=== PATIENT | male | born 1995 | race Caucasian/White ===

== ENCOUNTER 2017-07-06 23:30 | Emergency (ER) | payer OTHER ==
[2017-07-07 00:01] LABS: PLATELET COUNT 223 10^3/uL (150-400)
--- NOTE | 2017-07-07 00:08 | EDPHY ---
H & P Time Seen by Provider: 07/07/17 00:15 HPI/ROS: Chief complaint: SI/HI, on mental health hold History of present illness: This is a 22-year-old male who reports a history of bipolar, currently on multiple medications, who states he is having thoughts of hurting himself and other people. No specific plan or person targeted. He went to [facility] this evening to get medications at which time he states he felt unsafe. He felt he needed to come to the hospital to be safe. On my evaluation he feels like he is slightly improved. He denies illness or injury. Police have placed him on a mental health hold. Review of systems: A 10 point review of systems was obtained and other than described above was negative (Nilson Varma) - Physical Exam Exam: General Appearance: Alert, nontoxic. Eyes: Pupils equal and round no pallor or injection. ENT, Mouth: Mucous membranes moist. Respiratory: There are no retractions, lungs are clear to auscultation. Cardiovascular: Regular rate and rhythm. Gastrointestinal: Abdomen is soft and non tender, no masses, bowel sounds normal. Neurological: Alert. Strength and sensation intact and symmetrical. Skin: Warm and dry, no rashes. Musculoskeletal: Neck is supple non tender. Extremities are symmetrical, full range of motion. Psychiatric: Appears mildly agitated (Nilson Varma) Constitutional: Initial Vital Signs Temperature (C) 37.3 C 07/06/17 23:59 Heart Rate 96 07/06/17 23:59 Respiratory Rate 16 07/06/17 23:59 Blood Pressure 162/106 H 07/06/17 23:59 O2 Sat (%) 98 07/06/17 23:59 O2 Delivery Mode Room Air Allergies/Adverse Reactions: No Known Allergies Allergy (Unverified 07/07/17 00:13) Home Medications: Medication Instructions Recorded Acetaminophen 07/07/17 Benadryl 07/07/17 Cogentin 07/07/17 Depakote 07/07/17 INVEGA 07/07/17 LORazepam 07/07/17 Goldston Carbonate ER 07/07/17 Propranolol HCl 07/07/17 Seroquel 07/07/17 Medical Decision Making ED Course/Re-evaluation: Patient seen under the supervision of my secondary supervising physician Dr. Tana Haines. Patient presents stating SI and HI without specific plan or target. He is on a mental health hold. Medical evaluation is begun with blood studies. This is pending at time of dictation. Care of patient is turned over to Dr. Haines at end of shift. (Nilson Varma) Differential Diagnosis: Included but not limited to anxiety, depression, bipolar, schizophrenia, substance abuse (Nilson Vrama) Other Provider: I assumed care of the patient at 7 o'clock in the morning pending psychiatric disposition. Update at 1:00 p.m.: The patient has been accepted at [facility] for inpatient psychiatric hospitalization by Jero Cooper. [facility] (Kingston Menjviar) - Data Points Laboratory Results: Laboratory Results 07/06/17 23:45 07/06/17 23:45 Medications Given: Discontinued Medications Benztropine Mesylate (Cogentin) 2 mg PO EDNOW ONE Stop: 07/07/17 00:36 Last Admin: 07/07/17 01:19 Dose: 2 mg Divalproex Sodium (Depakote Er) 1,000 mg PO EDNOW ONE Stop: 07/07/17 00:46 Last Admin: 07/07/17 01:20 Dose: 1,000 mg Divalproex Sodium (Depakote Er) 250 mg PO EDNOW ONE Stop: 07/07/17 01:01 Last Admin: 07/07/17 01:20 Dose: 250 mg [place] Carbonate (Lithobid) 1,200 mg PO BID KEISHA Stop: 01/03/18 00:29 Last Admin: 07/07/17 07:14 Dose: Not Given [place] Carbonate (Lithobid) 1,200 mg PO EDNOW ONE Stop: 07/07/17 01:01 Last Admin: 07/07/17 01:20 Dose: 1,200 mg Paliperidone (Invega) 9 mg PO EDNOW ONE Stop: 07/07/17 00:46 Last Admin: 07/07/17 01:20 Dose: 9 mg Propranolol HCl (Inderal) 20 mg PO EDNOW ONE Stop: 07/07/17 00:19 Last Admin: 07/07/17 01:20 Dose: 20 mg Quetiapine Fumarate (Seroquel) 200 mg PO EDNOW ONE Stop: 07/07/17 00:17 Last Admin: 07/07/17 01:20 Dose: 200 mg Departure - Departure Disposition: Other Psych, Not [facility] Clinical Impression: Suicidal ideation Condition: Good Referrals: NONE *PRIMARY CARE P,. [Primary Care Provider] - As per Instructions
[2017-07-07] MEDS ORDERED: QUEtiapine FUMARATE 200 MG TAB PO ONE (00:16)
[2017-07-07] MEDS ORDERED: PROPRANOLOL HCL 20 MG TAB PO ONE (00:18)
[2017-07-07] MEDS ORDERED: LITHIUM CARBONATE ER 300 MG TAB PO SCH (00:30)
[2017-07-07] MEDS ORDERED: BENZTROPINE MESYLATE 2 MG TAB PO ONE (00:35)
[2017-07-07] MEDS ORDERED: DIVALPROEX ER 500 MG TAB PO ONE (00:45)
[2017-07-07] MEDS ORDERED: PALIPERIDONE 9 MG TAB.ER PO ONE (00:45)
[2017-07-07] MEDS ORDERED: LITHIUM CARBONATE ER 300 MG TAB PO ONE (01:00)
[2017-07-07] MEDS ORDERED: DIVALPROEX ER 250 MG TAB PO ONE (01:00)
[2017-07-07 15:04] VITALS: BP 120/80
== END 2017-07-07 15:04 ==
LOC: EDUNIT#
DX: R45.851 Suicidal ideations (principal)
CPT/HCPCS: 80305; G0480

== ENCOUNTER 2017-08-13 09:20 | Inpatient (IN) | payer OTHER ==
--- NOTE | 2017-08-13 09:28 | EDPHY ---
H & P - Medical/Surgical History Other PMH: BIPOLAR - Social History Smoking Status: Current every day smoker Time Seen by Provider: 08/13/17 09:24 HPI/ROS: CHIEF COMPLAINT: Somnolence, fever HISTORY OF PRESENT ILLNESS: 22-year-old male history of bipolar disorder arrives from [facility] via ambulance. The the staff psychiatrist contacted the ER physician provides incoming information noting that since the patient's medications were recently changed, he is more somnolent, has been spiking fevers. In interviewing the patient he states that he is feeling well. No complaints of pain or discomfort. He denies flu-like symptoms. He denies: Chest pain, cough, dyspnea, urinary abnormality, otalgia, sore throat, abdominal pain, chest pain, nuchal rigidity, headache. PRIMARY CARE PROVIDER: REVIEW OF SYSTEMS: A ten point review of systems was performed and is negative with the exception of the items mentioned in the HPI PAST MEDICAL & SURGICAL HISTORY: Bipolar disorder. SOCIAL HISTORY: Denies alcohol or drug use lives at [facility] PHYSICAL EXAM (Prior to examination, patient consented to physical exam, hands were washed and my usual and customary physical exam procedures followed) 1) GENERAL: Well-developed, well-nourished, somnolent, easily woken answering questions appropriately otherwise. Appears to be in no acute distress. 2) HEAD: Normocephalic, atraumatic 3) HEENT: Pupils equal, round, reactive to light bilaterally. Sclera anicteric. Nasopharynx, oropharynx, clear, no lesions. Ears bilaterally with normal tympanic membranes. 4) NECK: Full range of motion, no meningeal signs. 5) LUNGS: Clear auscultation bilaterally, no wheezes, no rhonchi, no retractions. 6) HEART: Regular rate and rhythm, no murmur, no heave, no gallop. 7) ABDOMEN: No guarding, no rebound, no focal tenderness, negative McBurney's, negative Roman's, negative Rovsing's, negative peritoneal sign, 8) MUSCULOSKELETAL: Moving all extremities, no focal areas of tenderness, no obvious trauma. No peripheral edema or discoloration. 9) BACK: No CVA tenderness, no midline vertebral tenderness, no fluctuance, no step-off, no obvious trauma, no visual or palpable abnormality. 10) SKIN: No rash, no petechiae. 11) Psychiatric: Patient is oriented X 3, there is no agitation. DIFFERENTIAL DIAGNOSIS: In no particular include but limited to serotonin syndrome, medication change, septic shock (Lisa Guadalupe) Constitutional: Initial Vital Signs Temperature (C) 37.4 C 08/13/17 09:15 Heart Rate 104 H 08/13/17 09:15 Respiratory Rate 18 08/13/17 09:15 Blood Pressure 141/86 H 08/13/17 09:15 O2 Sat (%) 97 08/13/17 09:15 O2 Delivery Mode Room Air Allergies/Adverse Reactions: No Known Allergies Allergy (Verified 08/13/17 11:54) Home Medications: Medication Instructions Recorded Benztropine Mesylate [Cogentin 0.5 mg PO BID 07/07/17 (RX)] Divalproex ER [Depakote ER 500 MG 1,500 mg PO HS 07/07/17 (*)] LORazepam [Ativan (*)] 0.5 mg PO BID 07/07/17 Atkinson Carbonate ER [Eskalith Cr 450 mg PO HS 07/07/17 450 mg (*)] Propranolol HCl [Inderal 20mg (*)] 20 mg PO BID 07/07/17 Herbals/Supplements -Info Only 1 ea PO DAILY 08/13/17 Multivitamins [Multivitamin (*)] 1 each PO DAILY 08/13/17 cloZAPine [Clozaril (*)] 100 mg PO HS 08/13/17 Medical Decision Making - Diagnostics Imaging Results: Imaging Impressions Head CT 08/13/17 10:05 Impression: 1. Normal CT brain without contrast. 2. Consider MRI of the brain, if there is continued clinical concern. Findings and recommendations discussed with Emergency Department physicianLisa at 12:05 hour, 08/13/2017. Final report concurs with initial preliminary interpretation. Chest X-Ray 08/13/17 11:49 Impression: Patchy perihilar opacities, which could be related to pneumonia. Procedures: Procedure: Lumbar puncture. Indication: Rule out infection After verbal informed consent from patient explaining the risks including infection, bleeding, and neurologic damage, a lumbar puncture was performed after the patient was prepped and draped in the usual fashion. The back was anesthetized with 1% lidocaine. Approximately 4 cc of clear fluid was obtained. Opening pressure was not obtained. There were no complications. A 25 gauge Christianson blunt-tipped needle was used The procedure was performed by myself. (Brannon Echeverria) ED Course/Re-evaluation: Patient was re-evaluated with serial examinations. He remains somnolent in the ER but is easily woken answers questions appropriately and simple requests that we let him go back to sleep. He was noted to be febrile met septic shock criteria however remained hemodynamically stable while in the emergency department. Panculturing obtained, started on empiric Rocephin. Dr. Brannon Echeverria has performed lumbar puncture which was grossly unremarkable. The specific etiology of his fever, lactate, is incompletely clear at this time, may be related to acute medication changes. Plan will be admission. 12:20 p.m.: Phone consultation with hospitalist Yesika, admit to Dr. Dominguez step-down. Lumbar puncture will be obtained in the ER. Awaiting urinalysis. ( Lisa Guadalupe) - Data Points Laboratory Results: Laboratory Results 08/13/17 09:30 08/13/17 09:30 08/13/17 08/13/17 08/13/17 11:10 09:30 09:30 WBC 9.80 10^3/uL H 10^3/uL (3.80-9.50) RBC 5.31 10^6/uL 10^6/uL (4.40-6.38) Hgb 15.9 g/dL g/dL (13.7-17.5) Hct 47.5 % % (40.0-51.0) MCV 89.5 fL fL (81.5-99.8) MCH 29.9 pg pg (27.9-34.1) MCHC 33.5 g/dL g/dL (32.4-36.7) RDW 12.6 % % (11.5-15.2) Plt Count 170 10^3/uL 10^3/uL (150-400) MPV 10.6 fL fL (8.7-11.7) Neut % (Auto) 79.4 % H % (39.3-74.2) Lymph % (Auto) 13.5 % L % (15.0-45.0) Clare % (Auto) 5.3 % % (4.5-13.0) Eos % (Auto) 0.7 % % (0.6-7.6) Baso % (Auto) 0.3 % % (0.3-1.7) Nucleat RBC Rel Count 0.0 % % (0.0-0.2) Absolute Neuts (auto) 7.78 10^3/uL H 10^3/uL (1.70-6.50) Absolute Lymphs (auto) 1.32 10^3/uL 10^3/uL (1.00-3.00) Absolute Monos (auto) 0.52 10^3/uL 10^3/uL (0.30-0.80) Absolute Eos (auto) 0.07 10^3/uL 10^3/uL (0.03-0.40) Absolute Basos (auto) 0.03 10^3/uL 10^3/uL (0.02-0.10) Absolute Nucleated RBC 0.00 10^3/uL 10^3/uL (0-0.01) Immature Gran % 0.8 % % (0.0-1.1) Immature Gran # 0.08 10^3/uL 10^3/uL (0.00-0.10) VBG Lactic Acid 4.1 mmol/L H mmol/L (0.7-2.1) Sodium 146 mEq/L H mEq/L (135-145) Potassium 4.4 mEq/L mEq/L (3.3-5.0) Chloride 107 mEq/L mEq/L (97-110) Carbon Dioxide 27 mEq/l mEq/l (22-31) Anion Gap 12 mEq/L mEq/L (8-16) BUN 10 mg/dL mg/dL (7-23) Creatinine 0.8 mg/dL mg/dL (0.7-1.3) Estimated GFR > 60 Glucose 98 mg/dL mg/dL (70-100) Calcium 9.7 mg/dL mg/dL (8.5-10.4) Total Bilirubin 0.8 mg/dL mg/dL (0.1-1.4) Conjugated Bilirubin 0.2 mg/dL mg/dL (0.0-0.5) Unconjugated Bilirubin 0.6 mg/dL mg/dL (0.0-1.1) AST 21 IU/L IU/L (17-59) ALT 33 IU/L IU/L (21-72) Alkaline Phosphatase 41 IU/L IU/L (38-126) Total Protein 7.2 g/dL g/dL (6.3-8.2) Albumin 4.2 g/dL g/dL (3.5-5.0) Salicylates < 1.0 mg/dL L mg/dL (2.0-20.0) Acetaminophen < 10 mcg/mL L mcg/mL (10-30) Valproic Acid 105.1 mcg/mL mcg/mL (50.0-150.0) Atkinson 0.3 mEq/L L mEq/L (0.6-1.2) Ethyl Alcohol < 10 mg/dL mg/dL (0-10) 08/13/17 01:40 WBC RBC Hgb Hct MCV MCH MCHC RDW Plt Count MPV Neut % (Auto) Lymph % (Auto) Clare % (Auto) Eos % (Auto) Baso % (Auto) Nucleat RBC Rel Count Absolute Neuts (auto) Absolute Lymphs (auto) Absolute Monos (auto) Absolute Eos (auto) Absolute Basos (auto) Absolute Nucleated RBC Immature Gran % Immature Gran # VBG Lactic Acid 1.1 mmol/L mmol/L (0.7-2.1) Sodium Potassium Chloride Carbon Dioxide Anion Gap BUN Creatinine Estimated GFR Glucose Calcium Total Bilirubin Conjugated Bilirubin Unconjugated Bilirubin AST ALT Alkaline Phosphatase Total Protein Albumin Salicylates Acetaminophen Valproic Acid Atkinson Ethyl Alcohol Medications Given: Discontinued Medications Sodium Chloride (Ns) 1,000 mls @ 0 mls/hr IV ONCE ONE PRN Reason: Wide [place] Stop: 08/13/17 10:04 Last Admin: 08/13/17 10:08 Dose: 1,000 mls Sodium Chloride (Ns) 2,400 mls @ 4,800 mls/hr 30 ml/kg infuse over 30 min ( 2400 ml) IV EDNOW ONE PRN Reason: Protocol Stop: 08/13/17 11:51 Last Admin: 08/13/17 11:40 Dose: 2,400 mls Ceftriaxone Sodium/Dextrose (Rocephin 1 Gm (Premix)) 50 mls @ 100 mls/hr IV EDNOW ONE PRN Reason: Protocol Stop: 08/13/17 12:18 Last Admin: 08/13/17 12:03 Dose: 50 mls Ibuprofen (Motrin) 600 mg PO EDNOW ONE Stop: 08/13/17 10:04 Last Admin: 08/13/17 10:07 Dose: 600 mg Departure - Departure Disposition: [facility]
[2017-08-13 09:56] LABS: PLATELET COUNT 170 10^3/uL (150-400)
[2017-08-13] MEDS ORDERED: IBUPROFEN 600 MG TAB PO ONE (10:03)
[2017-08-13] MEDS ORDERED: NS 1,000 ML IV ONE (10:03)
[2017-08-13] MEDS ORDERED: ACETAMINOPHEN 500 MG TAB PO ONE (11:05)
[2017-08-13] MEDS ORDERED: NS 2,400 ML IV ONE (11:22)
[2017-08-13] MEDS ORDERED: ACETAMINOPHEN 650 MG SUPP PR PRN (14:51)
[2017-08-13] MEDS ORDERED: ACETAMINOPHEN 325 MG TAB PO PRN (14:51)
[2017-08-13] MEDS ORDERED: ONDANSETRON 4 MG/2 ML VIAL IVP PRN (14:51)
[2017-08-13] MEDS ORDERED: NS 1,000 ML IV SCH (15:00)
--- NOTE | 2017-08-13 15:22 | GHP ---
[f rep st] HISTORY AND PHYSICAL DATE OF ADMISSION: 08/13/2017 CHIEF COMPLAINT: Somnolence. HISTORY: The patient is a 22-year-old male, presents to the emergency room after 911 was called from the [facility] when his psychiatrist found him somnolent and with fever. The patient continues to be very somnolent and a difficult historian as he mumbles and rapidly falls back asleep. What I can get out of him is that he has been sleeping a lot lately. He has had profuse nausea and vomiting, a s well as some diarrhea and lower abdominal pain. Regarding cough, he says a little bit. He cannot tell me if it was productive or not. PAST MEDICAL HISTORY: Bipolar. MEDICATIONS: Please see computer record for full detailed list. ALLERGIES: No known drug allergies. SOCIAL HISTORY: He said something about living with his parents in [place], although then went on to mumble something about [employer], although it is unclear to me what his current social situation is. H e would not answer the questions regarding tobacco and alcohol or drug use. REVIEW OF SYSTEMS: Essentially unobtainable due the patient's very somnolent nature. FAMILY HISTORY: Also equally unobtainable. PHYSICAL EXAMINATION: GENERAL: Well-developed, well-nourished male, in no acute distress. Somnolen t but arousable. VITAL SIGNS: Temperature is 38.7, pulse 104, blood pressure 122/76, saturating 96% on room air. HEENT: Eye examination normal. Normal conjunctivae. Pupils react to light. Normal ears and nose. Hearing intact. Normal teeth. Oropharynx moist. NECK: Trachea midline. No thyrome heather. CHEST: Normal respiratory effort. Lungs clear to auscultation bilaterally. CARDIOVASCULAR: Regular rate and rhythm. No murmur. No extremity edema. ABDOMEN: Soft, minimally tender. No rebo und or guarding. Some possible lower abdominal tenderness, but the patient's lack of responsiveness makes exam difficult. No hepatosplenomegaly. SKIN: Warm, dry, intact without rash. MUSCULOSKELETA L: No cyanosis or clubbing. Strength 5/5 upper and lower extremities. Seems to be moving all equal ly, although no formal testing can be done. NEUROLOGIC: Cranial nerves grossly intact. Sensation gr ossly intact. PSYCH: Awake, alert, arousable but falls rapidly back asleep. Somnolence is causing mumbling speech, although if highly stimulated, I can get him to be more appropriate. LABORATORY DATA: White count 9.8, hematocrit 47.5, platelets 170. Sodium 146, potassium 4.4, chlori de 107, bicarb 27, BUN 10, creatinine 0.8, glucose 98. LFTs are negative. Lactate 4.1. Arlington 0.3 1. Lumbar puncture in the emergency room shows CSF white blood cell count 1. Chest x-ray reviewed by me. My personal interpretation is perihilar infiltrate. Head CT is negative. ASSESSMENT/PLAN: 1. Severe sepsis. This is evidenced by leukocytosis, tachycardia, and elevated lactate level. Sour ce of infection is possibly aspiration pneumonia versus gastrointestinal pathology versus viral. Fran l prescribe ceftriaxone and Flagyl which will cover both aspiration pneumonia and any possible intraa bdominal pathology. Will check a CT scan of the abdomen and pelvis. Will check a viral panel for re spiratory and gastrointestinal PCR. 2. Lactic acid elevation. He has improved down to 1.1 after getting his emergency room bolus. Will continue intravenous fluids. 3. Metabolic encephalopathy. Lumbar puncture was negative for meningitis. Will also add on a tox s creen. 4. Bipolar disorder. Arlington level is on the low side which makes me wonder his compliance level. Will resume his usual oral psychiatric medications when he is awake enough to take oral. DNR STATUS: Full. ADMISSION STATUS: 1. Will admit to observation. Reevaluate tomorrow regarding ongoing need for hospitalization. 2. DVT prophylaxis. He is low risk. /[id number]/MODL
[2017-08-13] MEDS ORDERED: IOPAMIDOL (ISOVUE-300) 100 ML BTL ONE (18:10)
[2017-08-13] MEDS ORDERED: cloZAPine 100 MG TAB PO SCH (21:00)
[2017-08-13] MEDS ORDERED: DIVALPROEX ER 500 MG TAB PO SCH (21:00)
[2017-08-13] MEDS ORDERED: LITHIUM CARBONATE ER 450 MG TAB PO SCH (21:00)
[2017-08-13] MEDS: BENZTROPINE MESYLATE 1 MG TAB PO SCH (21:11)
[2017-08-13] MEDS: DIVALPROEX ER 500 MG TAB PO SCH (21:11)
[2017-08-13] MEDS: PROPRANOLOL HCL 20 MG TAB PO SCH (21:12)
[2017-08-14 05:54] LABS: PLATELET COUNT 148 10^3/uL (150-400)
[2017-08-14] MEDS: PROPRANOLOL HCL 20 MG TAB PO SCH ×2 (09:11→20:56)
[2017-08-14] MEDS: BENZTROPINE MESYLATE 1 MG TAB PO SCH ×2 (09:11→20:56)
[2017-08-14] MEDS ORDERED: cloZAPine 100 MG TAB PO SCH (12:42)
--- NOTE | 2017-08-14 14:26 | HOSPPROG ---
Hospitalist Progress Note Assessment/Plan: * Aspiration pneumonia -Ceftriaxone, Flagyl * Severe sepsis -lactate normalized -BC pending * Bipolar -d/w his psychiatrist as Berry Boudreaux -he has been very sedated with med changes, lying in bed drooling -per psych - DC lithium and reduce depakote -per psych - reduce Clozaril of if necessary -still very sedated today - reduce Clozaril to 50mg * Metabolic encephalopathy -improving Subjective: No new complaints, less sedated today, but still lying in bed sleeping continously Objective: Vital Signs Temp Pulse Resp BP Pulse Ox 37.2 C 67 18 92/55 L 96 08/14/17 08:00 08/14/17 08:00 08/14/17 08:00 08/14/17 08:00 08/14/17 08:00 Microbiology 08/13/17 12:40 Gram Stain - Final Cerebral Spinal Fluid 08/13/17 15:20 Respiratory Panel (PCR) - Final Nasal, Sinus - Other No Organism Detected Laboratory Results 08/14/17 05:30 08/14/17 05:30 08/13/17 08/14/17 08/15/17 05:59 05:59 05:59 Intake Total 4889 Output Total 404 Balance 4485 - Physical Exam Constitutional: no apparent distress, appears nourished, not in pain Cardiovascular: regular rate and rhythym, no murmur, rub, or gallop Respiratory: no respiratory distress, no rales or rhonchi, clear to auscultation Gastrointestinal: normoactive bowel sounds, soft, non-tender abdomen, no palpable masses Skin: no rashes or abrasions, no fluctuance, no induration Neurologic: AAOx3, sensation intact bilaterally Psychiatric: interacting appropriately, not anxious, not encephalopathic, thought process linear ICD10 Worksheet Patient Problems: Problems Problem Status Onset Bipolar 1 disorder Acute - ICD10 Problem Qualifiers (1) Bipolar 1 disorder
--- NOTE | 2017-08-14 15:04 | PDMN ---
Medical Necessity Medical necessity: Change to IP, as of 08/14/17, per MD & MCG M-160 Sepsis ( severe) & M-283 Pneumonia due to Aspiration w/metabolic encephalopathy; pt remains very sedated with med changes; requiring close monitoring/further workup in Step-Down ICU, IV abx & Psych consult for med management; hx bipolar disorder
--- NOTE | 2017-08-14 15:28 | ASMTCASEMG ---
Living Arrangements What is your living Answers: With Other (Not Family) arrangement? Who do you live with? Type Of Residence Type of Residence Facility Name Notes: Patient lives at [facility] Discharge Plan Comments Coordination Status Comments Notes: Patient is a 22yo single male who lives at [facility] and has Bipolar Disorder. Patient's psychiatrist found him somnolent and with fever and sent him to the ER. Patient was admitted for severe sepsis, lactic acid elevation, metabolic encephalopathy, and Bipolar Disorder. Patient has been too somnolent so far to obtain a lot of information. OT/PT have been ordered. D/C plan TBD. CM will follow. Date Signed: 08/14/2017 03:27 PM Electronically Signed By:Skylar Morales LCSW
[2017-08-14] MEDS: DIVALPROEX ER 500 MG TAB PO SCH (20:56)
[2017-08-15 05:14] LABS: PLATELET COUNT 157 10^3/uL (150-400)
[2017-08-15] MEDS: BENZTROPINE MESYLATE 1 MG TAB PO SCH (08:32)
--- NOTE | 2017-08-15 09:01 | HOSPPROG ---
Hospitalist Progress Note Assessment/Plan: #Severe sepsis: resolved. Due to aspiration PNA -CT abd unremarkable, CSF clear, negative UA, resp panel #Metabolic/toxic encephalopathy: due to infection and oversedation with psych meds #Bipolar d/o: Dr. Dominguez spoke with his psychiatrist. Stopped [place] and decreased Depakote and Clozaril (110mg-->50mg). I also spoke with his psychiatrist today and confirmed medication changes #Aspiration PNA: change to Augmentin #Leukocytosis:resolved #Lactic acidosis: resolved with IVFs DC to [facility] today. I called his mother and told him treatment plan as well Subjective: feeling less tired today. Eating without issue Objective: Vital Signs Temp Pulse Resp BP Pulse Ox 36.4 C 58 L 16 93/50 L 95 08/15/17 08:00 08/15/17 08:00 08/15/17 08:00 08/15/17 08:00 08/15/17 08:00 Laboratory Results 08/15/17 05:00 08/15/17 05:00 08/14/17 08/15/17 08/16/17 05:59 05:59 05:59 Intake Total 600 150 Balance 600 150 - Time Spent With Patient Time Spent with Patient: greater than 35 minutes Time Spent with Patient: Greater than 35 minutes spent on this patients care, greater than 50% of time spent counseling, educating, and coordinating care regarding the above mentioned plan. - Physical Exam Constitutional: no apparent distress, other (tired, but answering questions appropriately) Ears, Nose, Mouth, Throat: moist mucous membranes Cardiovascular: regular rate and rhythym Respiratory: other (decreased BS at bases) Gastrointestinal: normoactive bowel sounds, soft, non-tender abdomen Genitourinary: no bladder fullness Skin: warm Musculoskeletal: full muscle strength Neurologic: AAOx3, CN II-XII Intact Psychiatric: flat affect ICD10 Worksheet Patient Problems: Problems Problem Status Onset Bipolar 1 disorder Acute
[2017-08-15] MEDS: PROPRANOLOL HCL 20 MG TAB PO SCH (11:20)
[2017-08-15] MEDS ORDERED: NS 500 ML IV ONE (11:37)
[2017-08-15 13:24] VITALS: BP 115/73
--- NOTE | 2017-08-15 15:29 | GDS ---
[f rep st] DISCHARGE SUMMARY DISCHARGE DIAGNOSES: 1. Severe sepsis. 2. Lactic acidosis. 3. Metabolic/toxic encephalopathy. 4. Bipolar disorder. HISTORY OF PRESENT ILLNESS: A 22-year-old male presents to the ER after 911 was called from [facility] when his psychiatrist found him somnolent with a fever. He continued to be very somnolent and a difficult historian at time of admission. He had profuse nausea and vomiting. Of note, he was recently started on Clozaril 2 weeks ago. HOSPITAL COURSE: 1. Severe sepsis: This is likely secondary to aspiration pneumonia with infiltrates on x-ray. He had a negative UA, lumbar puncture. He was treated with IV antibiotics here and will complete a total of 7 days of antibiotics with Augmentin at home. 2. Lactic acidosis: This is secondary to acute illness and dehydration. Lactate was 4.1, resolved with IV fluids. 3. Metabolic/toxic encephalopathy. This is multifactorial with acute infection and overmedicated secondary to acute illness and sedation from new psychiatric medications. My partner and I both talked to Dr. Ruiz at [facility]. Discontinued lithium, decreased Depakote to 1000 mg daily and Clozaril down to 50 mg daily. 4. Leukocytosis secondary to acute illness. This resolved. DISPOSITION: Patient is stable for discharge back to [facility]. I discussed plan with his primary psychiatrist. NEW MEDICATIONS: Augmentin 875 b.i.d. Changes: 1. Reduce Clozaril from 100 mg to 50 mg. 2. Reduce Depakote from 1500 mg to 1000 mg. 3. Discontinue lithium. FOLLOWUP: Primary psychiatrist. /[id number]/MODL MTDD
--- NOTE | 2017-08-15 15:51 | ASDISCHSUM ---
Discharge Information Plan Status:Half-Way Medically Cleared to Leave:08/15/2017 Discharge Date:08/15/2017 03:30 PM CM D/C Disposition:Home, Routine, Self-Care ADT D/C Disposition:Home, Routine, Self-Care Projected Discharge Date:08/15/2017 03:30 PM Transportation at D/C:Family Discharge Delay Reason: Follow-Up Date:08/15/2017 03:30 PM Discharge Slot: Final Diagnosis: Placement Information Patient Contact Information Contact Name:MELISSA Relationship:Mother Address:[address] Work Phone: City:[place] Alternate Phone: State/Zip Code:[place] [address] Email: Financial Information Financial Class:HMO and PPO Plans Primary Plan Desc:[facility] Primary Plan Number:[id number] Secondary Plan Desc: Secondary Plan Number: Assessment Information LACE LACE Length of stay for Answers: 1 day current admission Acuity / Level of Answers: Yes Care: Did the patient have an inpatient admission? # of Emergency department Answers: 1-2 visits in the last 6 months Social determinants Answers: Mental health diagnosis (anxiety, depression, pers onality disorders, etc.) Score: 8 Date Signed: 08/15/2017 03:48 PM Electronically Signed By:JACOBO Davis [facility] Initial CM Assessment Living Arrangements What is your living Answers: With Other (Not Family) arrangement? Who do you live with? Type Of Residence Type of Residence Facility Name Notes: Patient lives at [facility] Discharge Plan Comments Coordination Status Comments Notes: Patient is a 22yo single male who lives at [facility] and has Bipolar Disorder. Patient's psychiatrist found him somnolent and with fever and sent him to the ER. Patient was admitted for severe sepsis, lactic acid elevation, metabolic encephalopathy, and Bipolar Disorder. Patient has been too somnolent so far to obtain a lot of information. OT/PT have been ordered. D/C plan TBD. CM will follow. Date Signed: 08/14/2017 03:27 PM Electronically Signed By:Skylar Morales LCSW Case Management Discharge Plan Note Case Management Discharge Discharge Order Complete? Answers: Yes Patient to Obtain Answers: Other Notes: [facility] Medications Transportation Arranged Answers: Family/Friends Faxed Final Orders Answers: Yes Family Notified Answers: Yes Discharge Comments Notes: Pt is discharging back to the [facility] today with no CM needs. D/C meds faxed to Dr Rabago at [phone] at [facility]. Pt states his mother will transport him. Date Signed: 08/15/2017 03:49 PM Electronically Signed By:JACOBO Davis Intervention Information
== END 2017-08-15 15:30 | disposition home or self-care (01) | DRG 871 ==
LOC: EDUNIT# → F2N 14:54 → OBSVTOIN 08-14 12:42 → F3E 08-14 15:18
PROVIDERS: ADMIT Internal Medicine; ATTEND Internal Medicine
PROC: 009U3ZX Drainage of Spinal Canal, Percutaneous Approach, Diagnostic (ICD-10-PCS; principal; 2017-08-14)
DX: A41.9 Sepsis, unspecified organism (principal); R65.20 Severe sepsis without septic shock; J69.0 Pneumonitis due to inhalation of food and vomit; G93.41 Metabolic encephalopathy; T43.595A Adverse effect of other antipsychotics and neuroleptics, initial encounter; T42.6X5A Adverse effect of other antiepileptic and sedative-hypnotic drugs, initial encounter; G92 Toxic encephalopathy; E87.2 Acidosis; F31.9 Bipolar disorder, unspecified; F17.210 Nicotine dependence, cigarettes, uncomplicated
CPT/HCPCS: 80305; 97116-GP; 97161-GP; 97165-GO; G0378; G0480; J0696; Q9967

== ENCOUNTER 2017-08-20 22:14 | Emergency (ER) | payer OTHER ==
[2017-08-20] MEDS ORDERED: NS 1,000 ML IV ONE (22:55)
--- NOTE | 2017-08-20 22:59 | EDPHY ---
H & P Stated Complaint: fever and LAKE Time Seen by Provider: 08/20/17 22:46 HPI/ROS: HPI The patient presents with fever which was found on evening rounds at about 8:30 p.m. Tonight, measured to 101.2 at [facility] where he currently resides. Of note, the patient is on his last day of Augmentin after being diagnosed with sepsis related to underlying aspiration pneumonia. He was admitted to the hospital for August 13 to . He was feeling fine and did not realize that he had a fever. He has reported headache throughout the course of today which is frontal, dull, does not radiate and is caused him to rest for most of the day. He attributes this to cloazepaine which she started on August 19. He does not have any photophobia or neck stiffness.. REVIEW OF SYSTEMS Constitutional: No fever, no chills. Eyes: No discharge. ENT: No sore throat. Cardiovascular: No chest pain, no palpitations. Respiratory: No cough, no shortness of breath. Gastrointestinal: No abdominal pain, no vomiting. Genitourinary: No hematuria. Musculoskeletal: No back pain. Skin: No rashes. Neurological: No headache. PMHx: Recent history of aspiration pneumonia, bipolar disorder Soc Hx: Currently residing at [facility] after discharge from the hospital PHYSICAL General Appearance: Alert, no distress Eyes: Pupils equal and round no pallor or injection ENT, Mouth: Mucous membranes moist Respiratory: There are no retractions, lungs are clear to auscultation Cardiovascular: Regular rate and rhythm Gastrointestinal: Abdomen is soft and non-tender, no masses, bowel sounds normal Neurological: A&O, moves all extremities Skin: Warm and dry, no rashes Musculoskeletal: Neck is supple non tender Extremities: symmetrical, full range of motion Psychiatric: Patient is oriented X 3, there is no agitation Source: Patient Exam Limitations: No limitations - Personal History Current Tetanus/Diphtheria Vaccine: Yes Current Tetanus Diphtheria and Acellular Pertussis (TDAP): Yes - Medical/Surgical History Hx Asthma: No Hx Chronic Respiratory Disease: No Hx Diabetes: No Hx Cardiac Disease: No Hx Renal Disease: No Hx Cirrhosis: No Hx Alcoholism: No Hx HIV/AIDS: No Hx Splenectomy or Spleen Trauma: No Other PMH: BIPOLAR - Social History Smoking Status: Current every day smoker Constitutional: Initial Vital Signs Temperature (C) 36.5 C 08/20/17 22:19 Heart Rate 105 H 08/20/17 22:19 Respiratory Rate 16 08/20/17 22:19 Blood Pressure 130/92 H 08/20/17 22:19 O2 Sat (%) 94 08/20/17 22:19 O2 Delivery Mode Room Air Allergies/Adverse Reactions: No Known Allergies Allergy (Verified 08/20/17 22:21) Home Medications: Medication Instructions Recorded Benztropine Mesylate [Cogentin] 0.5 mg PO BID 07/07/17 LORazepam [Ativan (*)] 0.5 mg PO BID 07/07/17 Propranolol HCl [Inderal 20mg (*)] 20 mg PO BID 07/07/17 Herbals/Supplements -Info Only 1 ea PO DAILY 08/13/17 Multivitamins [Multivitamin (*)] 1 each PO DAILY 08/13/17 Amoxicillin/Clavulanate Pot 875 mg PO BID #8 tab 08/15/17 [Augmentin 875 MG TAB (*)] Divalproex ER [Depakote ER 500 MG 1,000 mg PO HS tab 08/15/17 (*)] cloZAPine [Clozaril (*)] 50 mg PO HS tab 08/15/17 Amoxicillin/Clavulanate Pot 875 mg PO BID #14 tab 08/21/17 [Augmentin 875 MG TAB (*)] Medical Decision Making - Diagnostics Imaging Results: Imaging Impressions Chest X-Ray 08/20/17 22:55 Impression: Significant interval resolution and clearance of pulmonary infiltrates and bronchial thickening. Chest x-ray two views shows resolving perihilar infiltrates, interpreted by me, radiology interpretation is pending. Differential Diagnosis: 22-year-old male with history of bipolar disorder and recent diagnosis of aspiration pneumonia presents with fever to 101.2 at about 8:00 p.m. Tonight. He is on his last day of Augmentin for the pneumonia. Here, he is slightly tachycardic, though other vital signs are normal and he is no longer febrile. Differential diagnosis includes recurrent aspiration pneumonia, side-effect of clozapine is indeed fever and headache. I have considered meningitis given his headache and the fever, however he has normal mental status, no nuchal rigidity , no photophobia to suggest meningitis. Of note on his hospitalization recently had lumbar puncture which was normal. The patient was given 1 L of IV fluid. Labs were checked including CBC which was unremarkable demonstrating no leukocytosis, BMP which was normal and lactate which was normal. He was not afebrile here. Chest x-ray did reveal improving infiltrates. Because of his fever, I will continue him on Augmentin for another week. He does not have a cough however. He is happy with this plan and will be discharged home. - Data Points Laboratory Results: Laboratory Results 08/20/17 23:05 08/20/17 23:05 08/20/17 08/20/17 08/20/17 23:10 23:05 23:05 WBC 9.45 10^3/uL 10^3/uL (3.80-9.50) RBC 4.60 10^6/uL 10^6/uL (4.40-6.38) Hgb 13.7 g/dL g/dL (13.7-17.5) Hct 40.1 % % (40.0-51.0) MCV 87.2 fL fL (81.5-99.8) MCH 29.8 pg pg (27.9-34.1) MCHC 34.2 g/dL g/dL (32.4-36.7) RDW 12.4 % % (11.5-15.2) Plt Count 250 10^3/uL 10^3/uL (150-400) MPV 9.2 fL fL (8.7-11.7) Neut % (Auto) 60.6 % % (39.3-74.2) Lymph % (Auto) 14.9 % L % (15.0-45.0) [place] % (Auto) 19.7 % H % (4.5-13.0) Eos % (Auto) 1.6 % % (0.6-7.6) Baso % (Auto) 0.4 % % (0.3-1.7) Nucleat RBC Rel Count 0.0 % % (0.0-0.2) Absolute Neuts (auto) 5.73 10^3/uL 10^3/uL (1.70-6.50) Absolute Lymphs (auto) 1.41 10^3/uL 10^3/uL (1.00-3.00) Absolute Monos (auto) 1.86 10^3/uL H 10^3/uL (0.30-0.80) Absolute Eos (auto) 0.15 10^3/uL 10^3/uL (0.03-0.40) Absolute Basos (auto) 0.04 10^3/uL 10^3/uL (0.02-0.10) Absolute Nucleated RBC 0.00 10^3/uL 10^3/uL (0-0.01) Immature Gran % 2.8 % H % (0.0-1.1) Immature Gran # 0.26 10^3/uL H 10^3/uL (0.00-0.10) RBC/WBC/PLT Morphology TNP Platelet Estimate TNP Smear Review By Pending POC Blood Source VENOUS Patient Temperature 37.0 DEGREES DEGREES POC VBG pH 7.47 H (7.31-7.42) POC VBG pCO2 34 mmHg L mmHg (40-44) POC VBG pO2 49 mmHg H mmHg (35-40) POC VBG HCO3 25 mEq/L mEq/L (22-26) POC VBG Total CO2 26 mEq/L mEq/L (21-27) POC VBG Base Excess 1.0 mEq/L mEq/L (-2.5-2.5) VBG Lactic Acid POC Mix VBG O2 Sat 87 % H % (65-75) Sodium 143 mEq/L mEq/L (135-145) Potassium 3.6 mEq/L mEq/L (3.3-5.0) Chloride 102 mEq/L mEq/L (97-110) Carbon Dioxide 25 mEq/l mEq/l (22-31) Anion Gap 16 mEq/L mEq/L (8-16) BUN 12 mg/dL mg/dL (7-23) Creatinine 0.9 mg/dL mg/dL (0.7-1.3) Estimated GFR > 60 Glucose 92 mg/dL mg/dL (70-100) POC Lactic Acid Ray 1.0 mmol/L mmol/L (0.7-2.1) Calcium 9.5 mg/dL mg/dL (8.5-10.4) Total Bilirubin 0.5 mg/dL mg/dL (0.1-1.4) AST 30 IU/L IU/L (17-59) ALT 71 IU/L IU/L (21-72) Alkaline Phosphatase 40 IU/L IU/L (38-126) Total Protein 6.6 g/dL g/dL (6.3-8.2) Albumin 3.7 g/dL g/dL (3.5-5.0) 08/20/17 23:04 WBC RBC Hgb Hct MCV MCH MCHC RDW Plt Count MPV Neut % (Auto) Lymph % (Auto) [place] % (Auto) Eos % (Auto) Baso % (Auto) Nucleat RBC Rel Count Absolute Neuts (auto) Absolute Lymphs (auto) Absolute Monos (auto) Absolute Eos (auto) Absolute Basos (auto) Absolute Nucleated RBC Immature Gran % Immature Gran # RBC/WBC/PLT Morphology Platelet Estimate Smear Review By POC Blood Source Patient Temperature POC VBG pH POC VBG pCO2 POC VBG pO2 POC VBG HCO3 POC VBG Total CO2 POC VBG Base Excess VBG Lactic Acid 1.2 mmol/L mmol/L (0.7-2.1) POC Mix VBG O2 Sat Sodium Potassium Chloride Carbon Dioxide Anion Gap BUN Creatinine Estimated GFR Glucose POC Lactic Acid Ray Calcium Total Bilirubin AST ALT Alkaline Phosphatase Total Protein Albumin Medications Given: Discontinued Medications Amoxicillin/Clavulanate Potassium (Augmentin 875mg) 875 mg PO EDNOW ONE PRN Reason: Protocol Stop: 08/21/17 00:30 Last Admin: 08/21/17 00:33 Dose: 875 mg Sodium Chloride (Ns) 1,000 mls @ 0 mls/hr IV EDNOW ONE; Wide Open PRN Reason: Protocol Stop: 08/20/17 22:56 Last Admin: 08/20/17 23:19 Dose: 1,000 mls Point of Care Test Results: Blood Gas/Lactic Acid-Arterial 08/20/17 23:10 POC Blood Source VENOUS Blood Gas/Lactic Acid-Venous 08/20/17 23:10 POC VBG pH 7.47 H (7.31-7.42) POC VBG pCO2 34 mmHg L mmHg (40-44) POC VBG pO2 49 mmHg H mmHg (35-40) POC VBG HCO3 25 mEq/L mEq/L (22-26) POC VBG Total CO2 26 mEq/L mEq/L (21-27) POC VBG Base Excess 1.0 mEq/L mEq/L (-2.5-2.5) POC Mix VBG O2 Sat 87 % H % (65-75) POC Lactic Acid Ray 1.0 mmol/L mmol/L (0.7-2.1) Departure - Departure Disposition: Home, Routine, Self-Care Clinical Impression: Fever Condition: Good Instructions: Amoxicillin/Clavulanate Potassium (By mouth), Fever in Adults (ED ) Additional Instructions: Your chest x-ray shows that your pneumonia is improving. Your other lab testing was unremarkable. I will recommend that you continue the Augmentin for another course to see if this helps or fever. It is possible that your fever is related to your new medication clozaril. Referrals: [facility],. [Clinic] - As per Instructions Prescriptions: Amoxicillin/Clavulanate Pot [Augmentin 875 MG TAB (*)] 875 mg PO BID #14 tab
[2017-08-20 23:19] LABS: PLATELET COUNT 250 10^3/uL (150-400)
[2017-08-21] MEDS ORDERED: AMOXICILLIN/CLAVULANATE POT 875/125 MG TAB PO ONE (00:29)
[2017-08-21 00:47] VITALS: BP 108/73
== END 2017-08-21 00:49 | disposition home or self-care (01) ==
DX: R50.9 Fever, unspecified (principal); F17.200 Nicotine dependence, unspecified, uncomplicated; E86.9 Volume depletion, unspecified
CPT/HCPCS: 83605-PO

== ENCOUNTER 2017-08-21 18:57 | Emergency (ER) | payer OTHER ==
--- NOTE | 2017-08-21 19:55 | EDPHY ---
H & P Stated Complaint: fever and recent pnuemonia Time Seen by Provider: 08/21/17 19:54 - Personal History Current Tetanus/Diphtheria Vaccine: Yes Current Tetanus Diphtheria and Acellular Pertussis (TDAP): Yes - Medical/Surgical History Hx Asthma: No Hx Chronic Respiratory Disease: No Hx Diabetes: No Hx Cardiac Disease: No Hx Renal Disease: No Hx Cirrhosis: No Hx Alcoholism: No Hx HIV/AIDS: No Hx Splenectomy or Spleen Trauma: No Other PMH: BIPOLAR - Social History Smoking Status: Former smoker Constitutional: Initial Vital Signs Temperature (C) 37.1 C 08/21/17 19:03 Heart Rate 126 H 08/21/17 19:03 Respiratory Rate 18 08/21/17 19:03 Blood Pressure 119/77 08/21/17 19:03 O2 Sat (%) 96 08/21/17 19:03 O2 Delivery Mode Room Air Allergies/Adverse Reactions: No Known Allergies Allergy (Verified 08/20/17 22:21) Home Medications: Medication Instructions Recorded LORazepam [Ativan (*)] 0.5 mg PO BID 07/07/17 Herbals/Supplements -Info Only 1 ea PO DAILY 08/13/17 Multivitamins [Multivitamin (*)] 1 each PO DAILY 08/13/17 Divalproex ER [Depakote ER 500 MG 1,000 mg PO HS tab 08/15/17 (*)] Amoxicillin/Clavulanate Pot 875 mg PO BID #14 tab 08/21/17 [Augmentin 875 MG TAB (*)] cloZAPine [Clozaril (*)] 75 mg PO HS 08/21/17 Medical Decision Making - Diagnostics Imaging Results: Imaging Impressions Chest X-Ray 08/21/17 20:00 Impression: Stable central peribronchial thickening without evidence of pneumonia. Imaging: I viewed and interpreted images myself ED Course/Re-evaluation: CHIEF COMPLAINT: Fever, diagnosed with pneumonia HISTORY OF PRESENT ILLNESS: The patient is a 22 y/o male complaining of a fever after being diagnosed with aspirational pneumonia. He was placed on Augmentin but became septic and was admitted from August 13-. Yesterday he developed a fever of 101.2 degrees and a dull frontal headache. Due to the symptoms yesterday he presented to this emergency department and had imaging and laboratory studies preformed. The patient was discharged with an additional Augmentin prescription. Today he developed a fever again. Denies chest pain, shortness of breath, abdominal pain , urinary or bowel complaints, paresthesias, numbness. REVIEW OF SYSTEMS: A 10 point review of systems was performed and is negative with the exception of the elements mentioned in the history of present illness. PHYSICAL EXAM: HR, BP, O2 Sat, RR. Temp noted General Appearance: Alert, well hydrated, appropriate, and non-toxic appearing. Head: Atraumatic without scalp tenderness or obvious injury Eyes: Pupils equal, round, reactive to light and accommodation, EOMI, no trauma , no injection. Ears: Clear bilaterally, no perforation, normal landmarks Nose: Atraumatic, no rhinorrhea, clear. Throat: There is no erythema or exudates, no lesions, normal tonsils, mucus membranes moist. Neck: Supple, nontender, no lymphadenopathy. Respiratory: No retractions, no distress, no wheezes, and no accessory muscle use. Lungs are clear to auscultation bilaterally. Cardiovascular: Regular rate and rhythm, no murmurs, rubs, or gallops. Bilateral carotid, radial, dorsalis pedis, and posterior tibial pulses intact. Good capillary refill all extremities. Gastrointestinal: Abdomen is soft, nontender, non-distended, no masses, no rebound, no guarding, no peritoneal signs. Musculoskeletal: Normal active ROM of all extremities, atraumatic. Neurological: Alert, appropriate, and interactive. The patient has normal DTRs and non-focal cranial nerves, motor, sensory, and cerebellar exam. Skin: No rashes, good turgor, no nodules on palpation. Past medical history: Pneumonia, bipolar Past surgical history: Denies Family history: Denies Social history: Currently staying at [facility] [place], single, not employed DIAGNOSTICS/PROCEDURES/CRITICAL CARE TIME: Chest x-ray: Stable central peribronchial thickening without evidence of pneumonia DIFFERENTIAL DIAGNOSIS: The differential diagnosis for the patient's fever included but was not limited to pneumonia, urinary tract infection, viral syndrome, meningitis, and sepsis. MEDICAL DECISION MAKING: The patient is a 22 y/o male presenting with a fever after being diagnosed with aspirational pneumonia. He is not febrile at triage and has a normal physical exam. Labs and chest x-ray ordered. 2041: I reviewed patient's chest x-ray which reveals a stable peribronchial thickening with no pneumonia. Patient has a WBC of 10.14 and does not meet sepsis criteria. 2044: Reassessed patient and discussed laboratory and imaging findings. I have advised him to continue taking Augmentin. Return precautions provided; patient is comfortable with this plan. - Data Points Laboratory Results: Laboratory Results 08/21/17 20:11 08/21/17 20:11 08/21/17 08/21/17 08/21/17 20:11 20:11 20:11 WBC 10.14 10^3/uL H 10^3/uL (3.80-9.50) RBC 4.43 10^6/uL 10^6/uL (4.40-6.38) Hgb 13.3 g/dL L g/dL (13.7-17.5) Hct 38.5 % L % (40.0-51.0) MCV 86.9 fL fL (81.5-99.8) MCH 30.0 pg pg (27.9-34.1) MCHC 34.5 g/dL g/dL (32.4-36.7) RDW 12.4 % % (11.5-15.2) Plt Count 228 10^3/uL 10^3/uL (150-400) MPV 9.1 fL fL (8.7-11.7) Neut % (Auto) Pending Lymph % (Auto) Pending [place] % (Auto) Pending Eos % (Auto) Pending Baso % (Auto) Pending Nucleat RBC Rel Count Pending Absolute Neuts (auto) Pending Absolute Lymphs (auto) Pending Absolute Monos (auto) Pending Absolute Eos (auto) Pending Absolute Basos (auto) Pending Absolute Nucleated RBC Pending Immature Gran % Pending Immature Gran # Pending Platelet Estimate Pending PT 14.6 SEC SEC (12.0-15.0) INR 1.12 (0.83-1.16) APTT 33.3 SEC SEC (23.0-38.0) VBG Lactic Acid Sodium 138 mEq/L mEq/L (135-145) Potassium 3.7 mEq/L mEq/L (3.3-5.0) Chloride 98 mEq/L mEq/L (97-110) Carbon Dioxide 26 mEq/l mEq/l (22-31) Anion Gap 14 mEq/L mEq/L (8-16) BUN 13 mg/dL mg/dL (7-23) Creatinine 0.8 mg/dL mg/dL (0.7-1.3) Estimated GFR > 60 Glucose 89 mg/dL mg/dL (70-100) Calcium 9.1 mg/dL mg/dL (8.5-10.4) Total Bilirubin 0.7 mg/dL mg/dL (0.1-1.4) 08/21/17 20:11 WBC RBC Hgb Hct MCV MCH MCHC RDW Plt Count MPV Neut % (Auto) Lymph % (Auto) [place] % (Auto) Eos % (Auto) Baso % (Auto) Nucleat RBC Rel Count Absolute Neuts (auto) Absolute Lymphs (auto) Absolute Monos (auto) Absolute Eos (auto) Absolute Basos (auto) Absolute Nucleated RBC Immature Gran % Immature Gran # Platelet Estimate PT INR APTT VBG Lactic Acid 1.1 mmol/L mmol/L (0.7-2.1) Sodium Potassium Chloride Carbon Dioxide Anion Gap BUN Creatinine Estimated GFR Glucose Calcium Total Bilirubin Departure - Departure Disposition: Home, Routine, Self-Care Clinical Impression: History of pneumonia Fever Qualifiers: Fever type: due to other condition Qualified Code(s): R50.81 - Fever presenting with conditions classified elsewhere Condition: Good Instructions: Fever in Adults (ED) Additional Instructions: 1. Continue taking Augmentin as prescribed. 2. Follow-up with your primary doctor within 72 hours. 3. Return to the Emergency Department for fever, chest pain, shortness of breath , increasing pain or other worsening of condition. Referrals: [facility],. [Clinic] - As per Instructions Report Scribed for: Benson Jimenez Report Scribed by: Destiny Anthony Date of Report: 08/21/17 Time of Report: 20:00
[2017-08-21 20:26] LABS: PLATELET COUNT 228 10^3/uL (150-400)
[2017-08-21 20:35] LABS: INR 1.12 (0.83-1.16); PROTIME(PATIENT) 14.6 SEC (12.0-15.0)
[2017-08-21 21:00] VITALS: BP 124/87
== END 2017-08-21 21:00 | disposition home or self-care (01) ==
DX: R50.9 Fever, unspecified (principal); Z87.01 Personal history of pneumonia (recurrent); Z87.891 Personal history of nicotine dependence

== ENCOUNTER 2017-08-23 23:19 | Inpatient (IN) | payer OTHER ==
[2017-08-23] MEDS ORDERED: NS 1,000 ML IV ONE ×2 (23:22→23:27)
--- NOTE | 2017-08-23 23:27 | EDPHY ---
H & P Time Seen by Provider: 08/23/17 23:25 HPI/ROS: HPI CHIEF COMPLAINT: Fever HISTORY OF PRESENT ILLNESS: 22-year-old male, history of aspiration pneumonia bipolar disorder, residing at the [facility], he has been seen here in the emergency room on August 13, August 20, August 21 and now tonight for fever. He reports that he had a fever of 105 degrees at [facility]. Upon arrival here to the emergency room is 37.9. He does complain of fever today. Chills. Additionally complains of nausea. Global weakness. Denies productive cough. States he just does not feel very well. Past Medical History: Denies significant medical history except for bipolar disorder, recent hospitalization for aspiration pneumonia Past Surgical History: Denies significant surgical history Social History: Denies daily use of drugs tobacco or alcohol. Family History: Noncontributory ROS REVIEW OF SYSTEMS: A comprehensive 10 point review of systems is otherwise negative aside from elements mentioned in the history of present illness. Exam Constitutional nontoxic appearing, triage nursing summary reviewed, vital signs reviewed, awake/alert. Vital signs noted at triage 37.9 Eyes normal conjunctivae and sclera, EOMI, PERRLA. HENT normal inspection, atraumatic, moist mucus membranes, no epistaxis, neck supple/ no meningismus, no raccoon eyes. Respiratory clear to auscultation bilaterally, normal breath sounds, no respiratory distress, no wheezing. Cardiovascular rate normal, regular rhythm, no murmur, no edema, distal pulses normal. Gastrointestinal soft, non-tender, no rebound, no guarding, normal bowel sounds, no distension, no pulsatile mass. Genitourinary no CVA tenderness. Musculoskeletal no midline vertebral tenderness, full range of motion, no calf swelling, no tenderness of extremities, no meningismus, good pulses, neurovascularly intact. Skin pink, warm, & dry, no rash, skin atraumatic. Neurologic awake, alert and oriented x 3, AAOx3, moves all 4 extremities equally, motor intact, sensory intact, CN II-XII intact, normal cerebellar, normal vision, normal speech. Psychiatric normal mood/affect. Heme/Lymph/Immune no lymphadenopathy. Differential Diagnosis: Includes but is not limited to in a particular order, sepsis, recurrent pneumonia, bacteremia, electrolyte disturbance, dehydration Medical Decision Making: Plan for this patient IV establishment blood cultures , basic blood work,, lactic acid, IV fluid bolus, antipyretic, repeat chest x- ray, urinalysis re-evaluate. Re-evaluation: 1246: Patient here for fever evaluation. It is noted that the patient has a positive troponin and elevated BNP. Given the patient has a fever 1 of this patient's pericarditis versus myocarditis. Patient will need to be admitted to the hospital. Reason for admission fever, this is his 4th ER visit. Additionally positive troponin EKG does not show acute ischemic changes and I do not really appreciate any signs of pericarditis however there is a incomplete right bundle-branch block present. 1256AM: Spoke with the hospitalist service Dr. Terry, agrees to admit the patient. Concern for myocarditis given fever, elevated troponin. Clear chest x -ray. Patient is still pending CT angiogram chest. I discussed the case with Dr. Charles Crystal, with Cardiology does recommend a.m. Echo. No indication for emergent echo in the emergency room at this time. 1257: I did re-evaluate the patient his vital signs noted to be blood pressure 105/57. 0115: CT angiogram of the chest shows no evidence of PE. Bilateral small pleural effusions. No significant pericardial effusion. The myocardium is not thickened. This was called to me by Dr. Molina. Source: Patient, EMS - Medical/Surgical History Hx Asthma: No Hx Chronic Respiratory Disease: No Hx Diabetes: No Hx Cardiac Disease: No Hx Renal Disease: No Hx Cirrhosis: No Hx Alcoholism: No Hx HIV/AIDS: No Hx Splenectomy or Spleen Trauma: No Other PMH: BIPOLAR - Social History Smoking Status: Former smoker Constitutional: Initial Vital Signs Temperature (C) 38.1 C 08/23/17 23:10 Heart Rate 122 H 08/23/17 23:10 Respiratory Rate 18 08/23/17 23:10 Blood Pressure 99/60 L 08/23/17 23:10 O2 Sat (%) 92 08/23/17 23:10 O2 Delivery Mode Room Air Allergies/Adverse Reactions: No Known Allergies Allergy (Verified 08/20/17 22:21) Home Medications: Medication Instructions Recorded LORazepam [Ativan (*)] 0.5 mg PO BID 07/07/17 Multivitamins [Multivitamin (*)] 1 each PO DAILY 08/13/17 Divalproex ER [Depakote ER 500 MG 1,000 mg PO HS tab 08/15/17 (*)] Acetaminophen [Tylenol 325mg (*)] 650 mg PO Q4HRS PRN tab 08/25/17 Enoxaparin [Lovenox 40 MG (*)] 40 mg SC DAILY syr 08/25/17 Hydrocodone/APAP 5/325 [[place] 1 - 2 tab PO Q4HRS PRN tab 08/25/17 5/325 (*)] Ibuprofen [Motrin (*)] 600 mg PO Q6HRS PRN tab 08/25/17 Ns [NS IV 1000ml (*)] 150 ml IV CONT bag 08/25/17 Medical Decision Making - Data Points Laboratory Results: Laboratory Results 08/23/17 23:30 08/23/17 23:30 Microbiology Results: MICROBIOLOGY 08/23/17 23:40 Blood Blood Culture - Preliminary Medications Given: Discontinued Medications Acetaminophen (Tylenol) 1,000 mg PO EDNOW ONE Stop: 08/24/17 00:01 Last Admin: 08/24/17 00:23 Dose: 1,000 mg Acetaminophen (Tylenol) 650 mg PO Q4HRS PRN PRN Reason: Pain, Mild/Fever, Can Take PO Stop: 02/20/18 01:38 Last Admin: 08/25/17 12:36 Dose: 650 mg Divalproex Sodium (Depakote Er) 1,000 mg PO HS KEISHA Stop: 02/20/18 20:59 Last Admin: 08/24/17 21:27 Dose: 1,000 mg Enoxaparin Sodium (Lovenox) 40 mg SC DAILY KEISHA Stop: 02/20/18 08:59 Last Admin: 08/25/17 09:20 Dose: 40 mg Sodium Chloride (Ns) 1,000 mls @ 0 mls/hr IV EDNOW ONE; Wide Open PRN Reason: Protocol Stop: 08/23/17 23:23 Last Admin: 08/23/17 23:15 Dose: 1,000 mls Sodium Chloride (Ns) 1,000 mls @ 0 mls/hr IV ONCE ONE PRN Reason: Wide Open Stop: 08/23/17 23:28 Last Admin: 08/23/17 23:59 Dose: 1,000 mls Piperacillin/Tazobactam/Dextrose (Zosyn (Premix)) 100 mls @ 200 mls/hr IV EDNOW ONE PRN Reason: Protocol Stop: 08/24/17 01:48 Last Admin: 08/24/17 02:02 Dose: 100 mls Sodium Chloride (Ns) 1,000 mls @ 75 mls/hr IV CONT KEISHA Stop: 02/20/18 01:44 Last Admin: 08/24/17 05:58 Dose: 1,000 mls Piperacillin/Tazobactam/Dextrose (Zosyn 3.375 Gm (Premix)) 50 mls @ 100 mls/hr IV Q6 KEISHA Stop: 09/23/17 07:59 Last Admin: 08/24/17 09:08 Dose: 50 mls Sodium Chloride (Ns) 1,000 mls @ 150 mls/hr IV CONT KEISHA Stop: 02/21/18 13:44 Last Admin: 08/25/17 13:43 Dose: 1,000 mls Ibuprofen (Motrin) 600 mg PO Q6HRS PRN PRN Reason: Pain, Mild Stop: 02/20/18 16:57 Last Admin: 08/25/17 14:02 Dose: 600 mg Ketorolac Tromethamine (Toradol) 15 - 30 mg IVP Q6HRS PRN PRN Reason: Pain, Breakthrough Stop: 08/29/17 11:59 Last Admin: 08/24/17 09:08 Dose: 15 mg Lorazepam (Ativan) 0.5 mg PO BID [facility] Stop: 02/20/18 08:59 Last Admin: 08/25/17 09:20 Dose: 0.5 mg Lorazepam (Ativan) 1 mg PO ONCE ONE Stop: 08/25/17 01:44 Last Admin: 08/25/17 03:45 Dose: 1 mg Multivitamins (Tab-A-Ismael) 1 each PO DAILY KEISHA Stop: 02/20/18 08:59 Last Admin: 08/25/17 09:20 Dose: 1 each Point of Care Test Results: Chemistry 08/24/17 00:19 POC Troponin I 0.13 ng/mL H ng/mL (0.00-0.08) Departure - Departure Disposition: [facility] Clinical Impression: Elevated troponin Fever Qualifiers: Fever type: unspecified Qualified Code(s): R50.9 - Fever, unspecified Myocarditis Qualifiers: Myocarditis type: idiopathic Chronicity: acute Qualified Code(s): I40.1 - Isolated myocarditis Condition: Fair
[2017-08-23 23:37] LABS: PLATELET COUNT 223 10^3/uL (150-400)
[2017-08-23 23:53] LABS: INR 1.06 (0.83-1.16)
[2017-08-24] MEDS ORDERED: ACETAMINOPHEN 500 MG TAB PO ONE
--- NOTE | 2017-08-24 00:23 | CPEKG ---
Heart Rate: 107 RR Interval: 561 P-R Interval: 128 QRSD Interval: 110 QT Interval: 368 QTC Interval: 491 P [place]: 33 QRS [place]: 99 T Wave [place]: -2 EKG Severity - ABNORMAL ECG - EKG Impression: SINUS TACHYCARDIA EKG Impression: INCOMPLETE RIGHT BUNDLE BRANCH BLOCK Electronically Signed By: Dalton Vargas 25-Aug-2017 06:30:11
[2017-08-24] MEDS ORDERED: IOPAMIDOL (ISOVUE 370) 100 ML BTL IV ONE (00:51)
[2017-08-24] MEDS ORDERED: PIPERACILLIN/TAZO 4.5 GM/DEX 100 ML IV ONE (01:19)
[2017-08-24] MEDS ORDERED: ONDANSETRON 4 MG/2 ML VIAL IVP PRN (01:39)
[2017-08-24] MEDS ORDERED: HYDROCODONE/APAP 5/325 TAB PO PRN (01:39)
[2017-08-24] MEDS ORDERED: LORazepam 2 MG/ML INJ IVP PRN (01:39)
[2017-08-24] MEDS ORDERED: NS 1,000 ML IV SCH (01:45)
--- NOTE | 2017-08-24 03:37 | GHP ---
[f rep st] HISTORY AND PHYSICAL DATE OF ADMISSION: 08/24/2017 SOURCE: Patient is able to provide history, is a fair historian. EMR was reviewed and case discussed with ED provider. CHIEF COMPLAINT: Fevers. HISTORY OF PRESENT ILLNESS: This is a 22-year-old gentleman with past medical history significant for bipolar disorder, recent discharge for aspiration pneumonia and sepsis, who presents to the emergency department today for the 4th time in the last 2 weeks for with complaints of persistent fevers. The patient was discharged with Augmentin on 08/15/2017. He was admitted with aspiration pneumonia and altered mental status, which did resolve fairly quickly. The patient has continued to have intermittent fevers up to 105 reported at home and return to the ED on 08/20, 08/21, and again today 08/23. The patient reports compliance with his antibiotic therapy. He denies any cough. He has been having some persistent dyspnea on exertion. He reports some nausea, fevers, chills, sweats, and generalized weakness. He has also endorsed some loose stools, but no melena or hematochezia. No dysuria or hematuria. No new rashes or sores. In the emergency department, patient was noted to be slightly hypotensive with systolic blood pressures in the high 90s and tachycardic. Cardiac troponin and BTNP were noted to be elevated. The patient denies any chest pain. No palpitations. No lightheadedness. REVIEW OF SYSTEMS: GENERAL: Positive for fevers, chills, sweats. SKIN: No rashes, sores. ENT: No congestion, sore throat. The patient does report that over the last several days, his tonsils have felt like they are enlarged, but denies any pain. CARDIOVASCULAR: No chest pain, palpitations. RESPIRATORY: Dyspnea on exertion as noted above. No cough. : The patient reports some loose stools. No melena or hematochezia. No abdominal pain. : No dysuria or hematuria. MUSCULOSKELETAL: Patient does endorse myalgias diffusely and joint pain also diffusely. NEURO: No headache. No numbness, tingling. No focal deficits. The patient does endorse generalized weakness and fatigue. PSYCH: Patient does have history of bipolar disorder, stable. Remainder of review of systems negative except as noted above. ALLERGIES: No known drug allergies. HOME MEDICATIONS: As per EMR. Clozapine 25 mg p.o. at h.s., multivitamin p.o. daily, lorazepam 0.5 mg p.o. twice daily, herbal supplements, and Depakote 1000 mg p.o. at h.s., and Augmentin 875 mg p.o. b.i.d. PAST MEDICAL HISTORY: Significant for bipolar disorder, history of aspiration pneumonia with sepsis 08/13/2017, admitted overnight. PAST SURGICAL HISTORY: Patient denies. FAMILY HISTORY: Negative for HTN, diabetes. SOCIAL HISTORY: Patient resides at [facility] for patient's with mental illness. Patient denies any tobacco, drugs, or alcohol use. COR STATUS: Full. PHYSICAL EXAM: VITALS: On arrival to the emergency department, blood pressure 99/60, heart rate 122, respiratory rate 18, O2 saturation 92% on room air, temperature 38.1. Current vitals available: Blood pressure 95/49, heart rate 97, respiratory rate 16, O2 saturation 92% on room air, and temperature 36.5. GENERAL: No acute distress. Young adult gentleman is lying quietly in bed asleep. He does answer questions without opening his eyes except on my introduction.. HEAD: Normocephalic, atraumatic. EYES: Extraocular muscles are grossly intact. Pupils limited exam secondary to patient not keeping his eyes open long enough for a full assessment, but no scleral icterus or conjunctival injection. No drainage. Pupils appear equal. NECK: Supple trachea midline. ENT: Mucous membranes appear moist. Unable to assess the patient's oropharynx secondary to cooperation as patient is sleeping. CARDIOVASCULAR: Regular rate and rhythm. No murmurs, rubs, or gallops appreciated. RESPIRATORY: Slightly diminished bibasilarly. No wheezes, rhonchi, or rales appreciated. Unlabored breathing. ABDOMEN: Positive bowel sounds. Soft, nontender to palpation. No rebound, guarding, or masses appreciated. : No suprapubic tenderness to palpation. No Conway catheter in place. EXTREMITIES: No cyanosis, clubbing, or edema appreciated. 2+ pedal pulses present. NEURO: Grossly nonfocal. No facial drooping. Moves all extremities while lying in bed. PSYCH: Affect is quite flat. The patient is cooperative, but does fall asleep intermittently during the interview. DATA REVIEWED: Laboratory studies: WBC 10.72, H and H 12.7 and 37.6, MCV of 86.6, platelet count 223, no bands. PT is 14.0, INR 1.06, PTT is 36.1. D- dimer is 155. Lactic acid initially was 3.4 after fluids, decreased down to 1.8. Sodium 137, potassium 3.7, chloride is 100, CO2 is 25, anion gap 14, BUN is 12, creatinine 0.8, GFR greater than 60. Glucose is 113, calcium 0.8, magnesium 1.8, total bilirubin 0.6, total protein is 6.4, albumin is 3.5, ALT is 31, AST is 20, alk phos is 51. Troponin point of care 0.13 BTNP is 32.6. Imaging: Chest x-ray image and report were reviewed by myself, negative for any acute findings. Chest x-ray from previous hospitalization did note some patchy perihilar opacities previously, which appear to have been resolved. CT angio negative for PE. Mild prominent main pulmonary artery. Question pulmonary hypertension. Small residual left pleural effusion with new small right pleural effusion. Mild dependent edema. Peribronchial cuffing consistent with bronchitis or viral process reactive airways. EKG reviewed myself showing sinus tachycardia with incomplete right bundle. No acute ST changes. QTc is 491. No comparison EKGs available. ASSESSMENT AND PLAN: A 22-year-old gentleman with history of bipolar disorder, recent admission overnight for pneumonia and sepsis, who has had continued fevers and now with abnormal cardiac enzymes. 1. Fever. Despite continued use of antibiotics and apparent resolution of patient's perihilar opacities, patient has continued to have fevers, which was measured upon arrival to 38.1. High fevers were reported at home up to 105. The patient does meet systemic inflammatory response syndrome criteria with severe sepsis criteria with a tachycardia, tachypnea, and the tachycardia, slight hypotension, and elevated lactate to greater than 3.6. Blood cultures have been obtained. Patient had been on Augmentin, but has continued to have fevers. This could be due to a new infectious source less likely to be pneumonia as it appears to be treated appropriately versus pericarditis, myocarditis, or other inflammatory issues. Patient has Tylenol available p.r.n. Again, cultures obtained. IV fluids have been given. Patient's blood pressures remain low normal. Cardiology was consulted from the emergency department for concerns of possible myocarditis. Echocardiogram has been ordered per their recommendation for the morning. They will evaluate the patient in the morning as well. Patient's antibiotics escalated to Zosyn given recent hospital stay and continued fevers. 2. Elevated troponin, BTNP. Plan as noted above. 3. Hypotension, mildly decreased. The patient received a bolus in the emergency department. We will continue with some gentle IV fluid hydration should patient have any cardiac involvement or decreased ejection fraction. 4. Anemia, likely related to patient's acute illness versus his clozapine. Review of the patient's previous recent CBC showed that this is downtrending, however, in the last few weeks. He has no evidence of active bleeding. He did report a little loose stools, but no melena, hematochezia. We will monitor H and H. 5. Bipolar disorder. Continue patient's clozapine. Monitor platelet count, which is currently normal. 6. Fluid, electrolyte, nutrition. Patient will receive gentle IV fluid hydration. Monitor for signs of any overload. Electrolyte monitoring replacement if needed. Regular diet as tolerated. 7. COR status is full. 8. Prophylaxis: Sequential compression devices and Lovenox if patient should stay additional day. Otherwise, mobilize. Encourage early ambulation. 9. Disposition: Patient has been admitted to observation status on the Pulmonary Care Unit floor at this time pending repeat laboratory studies, IV fluids, cardiology input, and echocardiogram. /[id number]/MODL MTDD
[2017-08-24] MEDS: ACETAMINOPHEN 325 MG TAB PO PRN ×3 (05:58→21:27)
[2017-08-24] MEDS ORDERED: PIPERACILLIN/TAZO 2.25 GM/DEX 50 ML IV SCH (08:00)
[2017-08-24] MEDS ORDERED: PIPERACILLIN/TAZO 3.375 GM/DEX 50 ML IV SCH (08:00)
[2017-08-24 08:13] LABS: PLATELET COUNT 193 10^3/uL (150-400)
[2017-08-24 08:30] LABS: CREATINE KINASE 46 IU/L (0-224)
[2017-08-24] MEDS ORDERED: KETOROLAC 15 MG/1 ML SDV IVP PRN (08:52)
[2017-08-24] MEDS ORDERED: HYDROmorphONE/DILAUDID 1 MG/ML INJ IVP PRN (08:55)
[2017-08-24] MEDS ORDERED: HYDROmorphONE/DILAUDID 2 MG TAB PO PRN (08:55)
[2017-08-24] MEDS: MULTIVITAMINS 1 EACH TAB PO SCH (09:08)
[2017-08-24] MEDS: LORazepam 0.5 MG TAB PO SCH ×2 (09:08→21:27)
[2017-08-24] MEDS: ENOXAPARIN 40 MG/0.4 ML SYR SC SCH (09:09)
--- NOTE | 2017-08-24 11:00 | ECHO ---
[email or web address] [address] [address] Main: [phone] Fax: [email or web address] Echocardiogram Name: JASMIN BAEZA MR#: [id number] Study Date: 08/24/2017 Study Time: 09:54 AM Date of : 1995 Age: 22 year(s) Height: 182.9 cm (72 in.) Weight: 78.47 kg (173 lb.) BSA: 2 m2 Gender: Male Examination: Echo Indication: MYOCARDITIS? Image Quality: Adequate Contrast: Requested by: Karl Kiser BP: 94 mmHg/48 mmHg Heart Rate: Rhythm: Indication: MYOCARDITIS? Procedure Staff Embroidery Supervisor: Bárbara Hyman [facility] Reading Physician: Karl Luna MD Requesting Provider: Conclusions: Normal size left ventricle. EF is 53 %. No regional wall motion abnormality. The mitral valve is normal in appearance and function. Mild mitral valve regurgitation is present. The aortic valve is tri-leaflet. There is no significant aortic valve regurgitation. No aortic valve stenosis is present. Right ventricular systolic pressure measures 32mmHg. No pericardial effusion. No old studies for comparison. Measurements: Chambers Valvular Assessment AV/MV Valvular Assessment TV/PV Normal Normal Normal Name Value Range Name Value Range Name Value Range Ao Susi (2D): 3.0 cm (1.4 cm-2.6 AV Vmax: 1.30 m/s (1 m/s-1.7 TR Vmax: 2.58 mm/s ( - ) cm) m/s) TR PGmax: 27 mmHg ( - ) IVSd (2D): 1.0 cm (0.6 cm-1.1 AV maxP mmHg ( - ) syst. PAP: 32 mmHg ( - ) cm) AV meanP mmHg ( - ) PV Vmax: 0.92 m/s (0.6 m/s-0.9 LVDd (2D): 5.9 cm (4.2 cm-5.9 DORIS (VTI): 3.0 cm ( - ) m/s) cm) MV E Vmax: 0.77 m/s ( - ) PV PGmax: 3 mmHg ( - ) LVDs (2D): 4.3 cm (2.1 cm-4 MV A Vmax: 0.37 m/s ( - ) cm) MV E/A: 2.08 ( - ) LVPWd (2D): 1.0 cm (0.6 cm-1 cm) MV PHT: 0.072 s ( - ) LVOTd 2.3 cm 2.3 cm mm MVA (PHT): 3.1 s ( - ) LVEF (BP): 53 % (>=55 %) RVDd(2D): 2.9 cm (1.9 cm-3.8 cmmm) Patient: JASMIN BAEZA Study Date: 08/24/2017 Page 1 of 2 09:54 AM Continued Measurements: Chambers Valvular Assessment AV/MV Valvular Assessment TV/PV Name Value Name Value Name Value LADs: 3.7 cm MV DecTime: 228 m/s CVP (est.): 5 mmHg LADs Lon.0 cm MV E/E' Lateral: 9.60 LA Area: 21.9 cm2 LA Volume: 64 ml LA Volume Index: 32.0 ml/m2 RA Area: 15.8 cm2 Additional Vessels Name Value Ao Ascendin.9 cm Inferior Vena Cava: 1.3 cm Findings: Left Ventricle: Normal size left ventricle. No LV hypertrophy. Normal global systolic LV function. EF is 53 %. No regional wall motion abnormality. Normal diastolic LV function. Right Ventricle: Normal size right ventricle. Normal RV function. Left Atrium: The left atrium is normal in size. Right Atrium: The right atrium is normal in size. Mitral Valve: The mitral valve is normal in appearance and function. Mild mitral valve regurgitation is present. No mitral stenosis is present. Aortic Valve: The aortic valve is tri-leaflet. There is no significant aortic valve regurgitation. No aortic valve stenosis is present. Tricuspid Valve: The tricuspid valve is normal in appearance and function. Mild tricuspid regurgitation is present. The pulmonary artery pressure is normal. Right ventricular systolic pressure measures 32mmHg. Pulmonic Valve: Pulmonary valve not well visualized. There is no pulmonic regurgitation seen. Aorta: The aorta is normal. Normal size aortic root measuring 3.0 cm. Normal size ascending aorta measuring 2.9 cm. IVC: The IVC is normal sized. Pericardium: No pericardial effusion. No pleural effusion. (No Signature Object) Patient: JASMIN BAEZA Study Date: 08/24/2017 Page 2 of 2 09:54 AM [id number]
--- NOTE | 2017-08-24 12:09 | GCON ---
[f rep st] CONSULTATION INFECTIOUS DISEASE CONSULTATION DATE OF CONSULTATION: 08/24/2017 REFERRING PHYSICIAN: Karl Kiser MD SOURCE: Chart and patient who was a poor historian REASON FOR CONSULTATION: Fever x1 week. HISTORY OF PRESENT ILLNESS: This is a 22-year-old male with underlying bipolar disorder with hospitalization in the past for recent hospitalization for severe sepsis 08/13/2017, through the . Over that hospitalization, patient was found to be febrile, very sedated, and was diagnosed with aspiration pneumonia based on elevated PCT, fever and CT scan showing bilateral lower lobe opacities. Patient was empirically treated with Augmentin, and at time of discharge. Five days later, patient presented to the emergency room on 2017, complaining of fever and headache. His labs were normal at that time. Again following on the , he had a fever and headache again. It appears based on reviewing medications being administered to him at the [facility] that he is currently still receiving Augmentin, as well as doxycycline. Patient returned to the emergency room on 08/23/2017, continuing to complain of fever. He describes 1 week of fever and states that he does not remember the prior hospitalization described above. He has some mild shortness of breath and describes a bitemporal headache. No rash. No diarrhea. He has decreased appetite, but has not lost weight. He feels like he has been on Clozaril for 2 weeks, but based on review of records has been approximately 1 month. He states that ibuprofen helps his fever more than Tylenol. He also describes some mild muscle aches and mild coughing, but no joint pain. He lives at the [facility] and has his own room. He does not camp, but occasionally hikes. No known tick bites, but patient is a poor historian. PAST MEDICAL HISTORY: Bipolar disorder and hospitalization as described above. PAST SURGICAL HISTORY: Negative. ALLERGIES: NKDA. MEDICATION: Clozapine 25 mg, multivitamin, lorazepam, herb supplements, Depakote 1000 mg at bedtime, Augmentin 875 twice daily and doxycycline 100 mg twice daily. FAMILY HISTORY: The patient denies family history of autoimmune disease and his parents are healthy. SOCIAL HISTORY: Lives at the [facility]. Denies tobacco, drugs, or alcohol use. No recent travel. Denies eating unpasteurized cheeses or raw meats or fascia. Patient denies having sex for multiple years. REVIEW OF SYSTEMS: A complete review of systems was performed and is negative, except as mentioned in the HPI. PHYSICAL EXAMINATION: VITAL SIGNS: T-max is 39.7, T-current 37.1, blood pressure 94/48, heart rate 114, respiratory rate 28, saturation 93% on room air. GENERAL: This is a young male lying in bed, very sleepy, but answers questions appropriately with significant prompting. HEENT: Conjunctiva are clear. Oropharynx: Good dentition. Moist mucous membranes. No oral ulcerations or exudates. NECK: Supple. No lymphadenopathy. CARDIOVASCULAR: tachycardic, regular rate. Possible faint systolic murmur. CHEST: Clear to auscultation bilaterally. ABDOMEN: Soft. Mild discomfort to palpation in the mid epigastrium. Bowel sounds are present. No peritoneal signs. EXTREMITIES: No clubbing, cyanosis, or edema. SKIN: No rashes. The patient is mildly diaphoretic. NEUROLOGIC: The patient is moving all 4 extremities equally. Cranial nerves grossly normal. LABORATORY/IMAGING: White count 11.6, neutrophils 70%, bands 13%, lymphocytes 7 %, monocytes 10%, hematocrit 31, platelets of 193. CRP 239. Troponin 0.145. Creatinine 0.9. AST 20, ALT 31, alkaline phosphatase 51, LDH 383. Microbiology : Blood cultures 08/13 negative. CSF cell count was normal and culture was negative 08/13/2017. Also on 08/13/2017, respiratory panel PCR is negative. One set of blood cultures from August 21 are no growth to date. Blood cultures were collected on August 24 and are pending. EKG was performed that shows an incomplete right bundle branch block and sinus tachycardia, mild prolonged QT. CT of the chest was performed that showed no PE or no infiltrate. ASSESSMENT/PLAN: 22-year-old male with recent hospitalization for over- sedation and subsequent aspiration pneumonia who has essentially been on continuous antibiotics since that time who describes over the last week recurrence of a fever associated headache and shortness of breath. Notably, no associated rash, diarrhea, or joint pain. Other pertinent laboratory findings , include an elevated troponin and elevated white count with a left shift, but normal LFTs, and no eosinophilia. Differential diagnosis of fever, includes drug reaction, viral myocarditis, Q fever, bacterial endocarditis. Interestingly, clozapine can certainly be associated with fever, as well as myocarditis and patient has been on this med x 1 month. The patient does not have any animal contact that would put him at risk for Brucella or Bartonella. Suspect etiology is due to clozapine 1. Agree with Echocardiogram, which is pending. We will follow up on results. 2. Discontinue antibiotic therapy due to low likelihood of bacterial infection warranting broad-spectrum antibiotics. Pertinent negatives, include no physical exam findings suggestive of bacterial disease, as well as a negative CT chest and recent negative CT abdomen. 3. Patient is a difficult historian but with cardiac findings will send Q fever serologies but seems patient was on doxycycline for a couple days without change in fever. Will also send WNV serologies and HIV, but will hold off on extensive w/u of infectious myocarditis for now. 4. clozapine has already been discontinued by primary team. 5. Follow blood cultures We will continue to follow patient on a daily basis in evaluate for evolving symptoms. Greater than 50 minutes spent on this patients care, greater than 50% of time spent counseling, educating, and coordinating care regarding the above mentioned plan. Case was coordinated with hospitalist and Cardiology. /[id number]/MODL MTDD
--- NOTE | 2017-08-24 13:50 | GCON ---
[f rep st] CONSULTATION DATE OF CONSULTATION: 08/24/2017 REFERRING PHYSICIAN: Loraine Terry MD REASON FOR CONSULTATION: We have been asked by Dr. Terry to evaluate the patient with an elevated tr oponin and BNP. HISTORY OF PRESENT ILLNESS: The patient is a 22-year-old gentleman with a history of bipolar disorde r and aspiration pneumonia who was admitted on 08/23/2017, with persistent fevers. On admission, aakash alvarez was noted to have an elevated BNP and elevated troponin. We have been consulted to help in the further management of this patient. Patient was in his usual state of health until approximately 2 to 3 weeks prior to admission, when he began to experience symptoms of high-grade fevers, as well as lethargy and decreased mental status. Patient was admitted to the hospital on 08/14/2017, with the above symptoms. At that time, he was d iagnosed with aspiration pneumonia and started on appropriate antibiotic therapy. Patient was discha rged back to [facility] where he continued to have high-grade fevers, as well as night sweats promp ting him to seek further evaluation. Patient denies symptoms of a productive cough. He denies dysur ia and frequency. He continues to have high-grade fevers, as well as night sweats. Of note, patient was recently started on Clozaril in the beginning of August for management of his bipolar disorder. P atient denies symptoms of chest pain, palpitations, orthopnea, or PND. PAST MEDICAL HISTORY: 1. Bipolar disorder. 2. Aspiration pneumonia. MEDICATIONS: Please see medicine reconciliation form. ALLERGIES: No known drug allergies. SOCIAL HISTORY: Patient lives at [facility]. FAMILY HISTORY: Negative for hypertension and diabetes. REVIEW OF SYSTEMS: 10-point review of systems is negative, except as noted in HPI. PHYSICAL EXAMINATION: GENERAL: The patient is resting comfortably in bed. He does not appear to be in acute distress. He is appropriately interactive. VITAL SIGNS: Temperature maximum was 39.7, te mperature current is 36.9, pulse is 87, blood pressure is 93/60, respiratory rate is 14, SaO2 is 97% on room air. HEENT: Normocephalic, atraumatic. Extraocular muscles intact. NECK: No JVD. No bru its. LUNGS: Clear to auscultation bilaterally. CARDIOVASCULAR: Regular rate and rhythm. S1, S2. No murmurs, rubs, or gallops appreciated. ABDOMEN: Soft, nontender with normoactive bowel sounds. No hepatosplenomegaly noted. EXTREMITIES: No clubbing, cyanosis, or edema. No evidence of splinte r hemorrhages or Janeway lesions. SKIN: No evidence of rashes. NEURO: Patient is awake, alert, an d oriented x3. LABORATORY/IMAGING: White blood cell count is 11.61 with leftward shift, hemoglobin 10.6, hematocrit 31.4, platelet count 193. Sodium 142, potassium 3.5, chloride 107, CO2 21, BUN 9, creatinine 0.9. Troponin 0.145. BNP is 3260. C-reactive protein is elevated at 239. Blood cultures from 08/13 demo nstrated no growth to date. INR is 1.06. Tox screen is negative. EKG demonstrates sinus rhythm with incomplete right bundle branch block. Echocardiogram demonstrates normal left ventricular size and systolic function with no segmental wall motion abnormalities. There were no significant valvular abnormalities. ASSESSMENT: The patient is a 22-year-old gentleman with return: 1. Elevated troponin. Patient presents with an elevated troponin in the setting of high-grade fever s. He denies symptoms of chest pain. His EKG demonstrates no acute ST or T-wave changes. His echoc ardiogram demonstrates normal left ventricular systolic function with no segmental wall motion abnorm alities. I suspect the patient's elevated troponin may be secondary to a myocarditis, secondary to r ecent initiation of Clozaril. Acute coronary syndrome is unlikely with this gentleman with limited c ardiac risk factors and subsequent findings on EKG and echocardiogram. 2. Fever. Patient presents with a several week history of high-grade fevers. He does have a mildly elevated white blood cell count with leftward shift. He was recently diagnosed with an aspiration p neumonia; however, the aspiration pneumonia is not clinically evident on his current CT of chest. Ec hocardiogram demonstrates no significant valvular abnormalities. Suspect the patient's high-grade fe vers are likely secondary to reaction from recent addition of Clozaril; however, I think it would be prudent to obtain repeat blood cultures to exclude endocarditis is a potential source. Consider [place] if clinical information points to this diagnosis. /[id number]/MODL
--- NOTE | 2017-08-24 15:30 | ASMTCMCOM ---
CM Note CM Note Notes: 08/24/2017 Case Management Note Discussed pt during rounds this morning. Admitted for fever and myopericarditis possibly secondary to Clozaril. Mom Cary present in room [phone]. Met w/mom and pt to discuss d/c needs this afternoon. Pt is living at the [facility] but was nearing d/c date, tentatively planned for end of this coming week. The plan was to d/c from [facility] to [facility] in [place]. His stay at the [facility] is paid for out of pocket by his parents at approximately $700/day. Mom is working with Ayla Ortiz [phone], bilingual case manager at [facility] for intensive outpatient program placement options. [phone]. [place] has an intensive outpatient program that was recommended to Mom by member of [facility] staff. Mom requested that case management inquire of [facility] if [facility] would be appropriate for his d/c psych needs. Mom stated it's likely pt will be shifting his psych meds and that he is in a fragile state with multiple inpatient stays since March. Pt completed stay at [facility] inpatient and has been admitted to the [facility] since May. Pt ambulates without difficulty. Case Management d/c poc: to be determined. Case Management to follow. Date Signed: 08/24/2017 03:30 PM Electronically Signed By:Emelina Nieto RN
--- NOTE | 2017-08-24 17:10 | HOSPPROG ---
Hospitalist Progress Note Assessment/Plan: Assessment: 22-year-old male presents with acute systemic inflammatory response syndrome, metabolic acidosis, and myocarditis most likely secondary to neuroleptic malignant syndrome due to clozaril Plan: 1. Systemic inflammatory response syndrome. Evidenced by high fever, tachycardia, leukocytosis secondary to neuroleptics malignant syndrome -discussed with Dr. Weir, she recommends discontinuing antibiotics at this time and monitoring given that the working diagnosis is non infectious -EKG with a sinus tachycardia, personally interpreted, now the heart rate has improved, stop IV fluids -monitor white blood cell count -HIV test, Q fever, West Nile virus test all sent 2. Acute metabolic acidosis. Secondary to lactic acid, most likely secondary to neuroleptic malignant syndrome and muscular rigidity -lactic acid level improved with IV fluids, monitor serum bicarbonate level 3. Acute myocarditis. Evidenced by troponin level of 0.125, most likely secondary to clozaril drug effect -echocardiogram demonstrates no focal wall motion abnormalities -discussed with Dr. Karl Luna, consultation appreciated, he is not recommend further cardiac risk stratification at this time as this is most likely secondary to drug effect -will trend troponin level and continue monitor on telemetry as the patient is proarrhythmic -will arrange outpatient follow up with [facility] -if experiencing chest pain, nonsteroidal anti-inflammatory medications 4. Neuroleptic malignant syndrome. This is the most likely cause of the patient 's presentation evidenced by leukocytosis, lactic acidosis, elevated ESR and CRP , muscular rigidity, secondary to Clozaril -discussed with Dr. Rabago, she agrees with this working diagnosis, recommends completely discontinuing the Clozaril -we discussed alternative agents for his mood stabilization and we agreed that we initiating lithium may be indicated but we will hold it at this time until the patient's acute presentation has completely stabilized, then consider initiating with careful up titration and electrolyte monitoring -will continue Depakote at present dosage 1000 mg at bedtime 4. Bipolar disease. Type 1, patient with pervasive delusions and manic symptoms prior to initiation of Clozaril, has been on numerous other medication combinations with limited success -monitor for development of sade -continue on single agent Depakote -as mentioned above, will consider re-initiation of lithium but after this episode of care -will require returning to [facility] after this presentation Diet. Regular Prophylaxis. Low risk patient, SCDs Code. Full Disposition. Anticipated discharge uncertain this time, upgraded to inpatient admission status reasonable medical necessity including acute neuroleptics malignant syndrome requiring aggressive treatment and management as outlined above. High-level medical complexity, high risk patient for worsening morbidity and/or mortality secondary to the issues outlined above. Subjective: Patient reports fatigue, headache and fever have improved Objective: Vital Signs Temp Pulse Resp BP Pulse Ox 36.7 C 96 14 97/67 L 100 08/24/17 16:00 08/24/17 16:00 08/24/17 16:00 08/24/17 16:00 08/24/17 16:00 Laboratory Results 08/24/17 08:00 08/24/17 08:00 08/23/17 08/24/17 08/25/17 05:59 05:59 05:59 Intake Total 2815 Output Total 275 Balance 2815 -275 PT 14.0 SEC (12.0-15.0) 08/23/17 23:30 INR 1.06 (0.83-1.16) 08/23/17 23:30 - Physical Exam Constitutional: no apparent distress, appears nourished, not in pain, No uncomfortable Cardiovascular: regular rate and rhythym, no murmur, rub, or gallop, No irregularly irregular, No tachycardia, No edema Respiratory: no respiratory distress, no rales or rhonchi, clear to auscultation Gastrointestinal: normoactive bowel sounds, soft, non-tender abdomen, no palpable masses, No distension Neurologic: AAOx3, sensation intact bilaterally, other (Muscular rigidity in the bilateral upper extremities) Psychiatric: not anxious, not encephalopathic, flat affect, No agitated ICD10 Worksheet Patient Problems: Problems Problem Status Onset Bipolar 1 disorder Acute Fever Acute Elevated troponin Acute
[2017-08-24] MEDS: IBUPROFEN 600 MG TAB PO PRN (17:46)
[2017-08-24] MEDS ORDERED: cloZAPine 100 MG TAB PO SCH ×2 (21:00)
[2017-08-24] MEDS ORDERED: DIVALPROEX ER 500 MG TAB PO SCH (21:00)
[2017-08-25] MEDS ORDERED: LORazepam 1 MG TAB PO ONE (01:43)
[2017-08-25 03:32] LABS: HIV TYPE 1 AND 2 NEGATIVE (NEGATIVE)
[2017-08-25 04:46] LABS: PLATELET COUNT 240 10^3/uL (150-400)
[2017-08-25] MEDS: LORazepam 0.5 MG TAB PO SCH (09:20)
[2017-08-25] MEDS: MULTIVITAMINS 1 EACH TAB PO SCH (09:20)
[2017-08-25] MEDS: ENOXAPARIN 40 MG/0.4 ML SYR SC SCH (09:20)
--- NOTE | 2017-08-25 09:42 | PCMIDPN ---
Assessment/Plan: Assessment: Probable neuroleptics malignant syndrome-secondary to the combination of Depakote and clozapine. Currently off all antibiotics. Agree with this omission as he does not appear to clinically have significant lower respiratory tract infection symptoms. Will sign off at present. Please call with further in questions for infectious disease. Plan: 1. Continue to observe off antibiotics. 2. Infectious Disease will sign off. Please call with further questions. Subjective: Patient is resting comfortably in his hospital bed. He notes no new issues overnight. States he is feeling generally a little bit better. Objective: No antibiotics. Vital Signs Temp Pulse Resp BP Pulse Ox 37.6 C 113 H 11 L 93/70 L 90 L 08/25/17 09:19 08/25/17 09:19 08/25/17 09:19 08/25/17 09:19 08/25/17 09:19 Laboratory Results 08/25/17 03:41 08/25/17 03:41 08/24/17 08/25/17 08/26/17 05:59 05:59 05:59 Intake Total 815 1420 Output Total 275 Balance 815 1145 ESR 35 MM/HR (0-15) H 08/24/17 08:00 C-Reactive Protein 239.0 mg/L (<10.0) H 08/24/17 08:00 - Physical Exam General Appearance: WD/WN, alert, no apparent distress, non-toxic Respiratory: lungs clear, normal breath sounds, No respiratory distress Cardiac/Chest: regular rate, rhythm, No tachycardia Skin: normal color, warm/dry, No rash Neuro/Psych: alert, normal mood/affect, oriented x 3 ICD10 Worksheet Patient Problems: Problems Problem Status Onset Elevated troponin Acute Fever Acute Bipolar 1 disorder Acute
--- NOTE | 2017-08-25 11:02 | PDMN ---
Medical Necessity Medical necessity: MCG: M160 sepsis and other febrile illness, 240 myocarditis A-2 days: fever, tachycardia, leukocytosis, secondary to neuroleptics malignant syndrome. with acute metabolic acidosis, elevated ESR, CRP, muscular rigidity, elevated trop., most likely secondary to clozaril., anticipate > 2 [place] med. nec. care eval and tx.
[2017-08-25] MEDS: ACETAMINOPHEN 325 MG TAB PO PRN (12:36)
[2017-08-25 13:06] VITALS: BP 96/56
--- NOTE | 2017-08-25 13:42 | ASMTLACE ---
FROYLANE Length of stay for Answers: 2 days current admission Acuity / Level of Answers: Yes Care: Did the patient have an inpatient admission? Comorbidities - select Answers: Other Notes: h/o bipolar, h/o all that apply aspiration pneumonia wi th sepsis 08/13 # of Emergency department Answers: 5-8 visits in the last 6 months Social determinants Answers: Mental health diagnosis (anxiety, depression, pers onality disorders, etc.) Score: 13 Date Signed: 08/25/2017 01:42 PM Electronically Signed By:JOSE MANUEL Kirk
[2017-08-25] MEDS ORDERED: NS 1,000 ML IV SCH (13:45)
--- NOTE | 2017-08-25 13:49 | ASMTDCNOTE ---
Case Management Discharge Discharge Order Complete? Answers: Yes Patient to Obtain Answers: Other Notes: [facility] Medications Transportation Arranged Answers: [facility] will Pick (Date 08/25/2017 02:30 PM & Time) EMTALA Complete Answers: Yes Case Management Transport Answers: Yes Form Complete Faxed Final Orders Answers: Yes Agency/Facility Transfer Answers: Yes Report Printed & Faxed to Receiving Agency Family Notified Answers: Yes Discharge Comments Notes: Pts case discussed in tx rounds. Pt is being transferred to [facility] today. EMTLA form completed and a copy is in pts chart. The accepting doctor at [facility] is Dr. Mayra Santos. [place] Vásquez called to give report. CM met w/ pt and mom for dispo planning. Pt and mom are on board w/ this plan. CM to follow. Plan: [facility] Date Signed: 08/25/2017 01:48 PM Electronically Signed By:JOSE MANUEL Kirk
[2017-08-25] MEDS: IBUPROFEN 600 MG TAB PO PRN (14:02)
--- NOTE | 2017-08-25 16:37 | ASDISCHSUM ---
Discharge Information Plan Status:Acute Transfer Medically Cleared to Leave:08/25/2017 Discharge Date:08/25/2017 02:34 PM CM D/C Disposition: ADT D/C Disposition:[facility] Projected Discharge Date:08/25/2017 11:00 AM Transportation at D/C: Discharge Delay Reason: Follow-Up Date:08/25/2017 11:00 AM Discharge Slot: Final Diagnosis: Placement Information Referral Type:Acute Care Referral ID:[id number] Provider Name: Address 1: Phone Number: Address 2: Fax Number: City: Selection Factors: State: Patient Contact Information Contact Name:MELISSA Relationship:Mother Address:[address] Work Phone: [facility] Phone: State/Zip Code:[place] [address] Email: Financial Information Financial Class:HMO and PPO Plans Primary Plan Desc:[facility] Primary Plan Number:[id number] Secondary Plan Desc: Secondary Plan Number: Assessment Information LACE LACE Length of stay for Answers: 2 days current admission Acuity / Level of Answers: Yes Care: Did the patient have an inpatient admission? Comorbidities - select Answers: Other Notes: h/o bipolar, h/o all that apply aspiration pneumonia wi th sepsis 08/13 # of Emergency department Answers: 5-8 visits in the last 6 months Social determinants Answers: Mental health diagnosis (anxiety, depression, pers onality disorders, etc.) Score: 13 Date Signed: 08/25/2017 01:42 PM Electronically Signed By:JOSE MANUEL Kirk [facility] CM Progress Note CM Note CM Note Notes: 08/24/2017 Case Management Note Discussed pt during rounds this morning. Admitted for fever and myopericarditis possibly secondary to Clozaril. Mom Cary present in room [phone]. Met w/mom and pt to discuss d/c needs this afternoon. Pt is living at the [facility] but was nearing d/c date, tentatively planned for end of this coming week. The plan was to d/c from [facility] to [facility] in [place]. His stay at the [facility] is paid for out of pocket by his parents at approximately $700/day. Mom is working with Ayla Ortiz [phone], leather case finisher at [place] for intensive outpatient program placement options. [phone] pt [facility]. [facility] has an intensive outpatient program that was recommended to Mom by member of [facility] staff. Mom requested that case management inquire of [facility] if [facility] would be appropriate for his d/c psych needs. Mom stated it's likely pt will be shifting his psych meds and that he is in a fragile state with multiple inpatient stays since March. Pt completed stay at [facility] inpatient and has been admitted to the [facility] since May. Pt ambulates without difficulty. Case Management d/c poc: to be determined. Case Management to follow. Date Signed: 08/24/2017 03:30 PM Electronically Signed By:Emelina Nieto RN Case Management Discharge Plan Note Case Management Discharge Discharge Order Complete? Answers: Yes Patient to Obtain Answers: Other Notes: [facility] Medications Transportation Arranged Answers: [facility] Transport will Pick (Date 08/25/2017 02:30 PM & Time) WIL Complete Answers: Yes Case Management Transport Answers: Yes Form Complete Faxed Final Orders Answers: Yes Agency/Facility Transfer Answers: Yes Report Printed & Faxed to Receiving Agency Family Notified Answers: Yes Discharge Comments Notes: Pts case discussed in tx rounds. Pt is being transferred to [facility] today. EMTLA form completed and a copy is in pts chart. The accepting doctor at [facility] is Dr. Mayra Santos. [place] Vásquez called to give report. CM met w/ pt and mom for dispo planning. Pt and mom are on board w/ this plan. CM to follow. Plan: [facility] Date Signed: 08/25/2017 01:48 PM Electronically Signed By:JOSE MANUEL Kirk Intervention Information
--- NOTE | 2017-08-25 18:21 | PDDCSUM ---
Discharge Summary Discharge Summary: DISCHARGE SUMMARY FOLLOW-UP ITEMS: Initiate alternative mood stabilizing agent Acute fever and West Nile virus titers pending DATE OF ADMISSION: 08/23/2017 DATE OF DISCHARGE: 08/25/2017 DISCHARGE DIAGNOSES: 1. Acute neuroleptic malignant syndrome 2. Systemic inflammatory response syndrome 3. Acute myocarditis 4. Acute metabolic acidosis 5. Bipolar disease type 1 CONSULTATIONS: Infectious Disease, Cardiology, iselabside with Psychiatry PROCEDURES / IMAGING: CT angiogram demonstrating no pulmonary embolism, no focal airspace disease Echocardiogram demonstrating no focal wall motion abnormalities, normal ejection fraction CHIEF COMPLAINT: Acute fever, headache, myalgias SUBJECTIVE: Patient expresses his myalgias and headache have improved, he had very poor sleep last night PHYSICAL EXAM ON DISCHARGE: Systolic 90-130, heart rate 90-130, satting well on room air, afebrile times 24 hr, alert awake oriented x3, mild muscular rigidity in all 4 extremities, intermittent myoclonus, lungs are clear to auscultation bilaterally, heart rhythm is tachycardic but regular comma no visible rash, he is not currently manic LABS ON DISCHARGE: Troponin 0.06, liver panel unremarkable, HIV test negative, creatinine 0.9, potassium 4.1, white blood cell count [id number] HOSPITAL COURSE BY PROBLEM: The patient presented with acute neuroleptic malignant syndrome evidenced by muscular rigidity, fever, tachycardia, leukocytosis, myocarditis and lactic acidosis. The cause of the NMS was most likely Clozaril. He demonstrated no evidence of focal infection. He was seen in consultation by Infectious Disease who did not recommend continuing antibiotics. I curb sided his case with his primary psychiatrist, Dr. Rabago, and she agreed that this was most likely neuroleptics malignant syndrome secondary to Clozaril and she recommended complete discontinuation of Clozaril at this time. She recommended holding on initiation of alternative mood stabilizing agent until his clinical condition completely resolved. On presentation he did have evidence of myocarditis with an elevated troponin level of 0.125, and he was seen in consultation by Cardiology, and they agree that this is most likely myocarditis, but with no abnormalities on echocardiogram and with down trending troponin, they did not recommend any additional intervention. He has been monitored on telemetry and he will continue to be monitored on a telemetry unit at the receiving hospital. He also had lactic acidosis on presentation which was most likely secondary to muscular rigidity, and this has subsided with IV fluids. He is hemodynamically stable at time of discharge, and has been continued on IV fluids appropriately. I discussed the patient's case with Dr. Sandy Biggs from [facility] utilization Management, and they both agreed the patient would receive optimal care at [facility] where the patient can be on the medical service but have a rounding psychiatry service to assist in reintroduction of a mood stabilizing agent, as is anticipated that the patient will require mood stabilization prior to discharge from the inpatient setting. The patient is already beginning to demonstrate some signs of sade, with poor sleep, and I anticipate this will get worse before it gets better. The patient' s mother also has considerable reservations regarding discharging the patient from the inpatient setting prior to mood stabilization, and we agree that this needs to be accomplished prior to discharge. DISCHARGE MEDICATIONS: Please see official discharge medication reconciliation sheet in chart , continue all home medications with discontinuation of Clozaril DISCHARGE INSTRUCTIONS: Verbal sign out of the above provided to Dr. Sandy Biggs. TIME SPENT: Greater than 30 minutes were spent on direct patient care, as well as discharge planning and preparation.
[2017-08-27 14:48] LABS: INTERPRETATION See Comments
[2017-08-28 16:49] LABS: WEST NILE VIRUS IGG Negative (Negative); WEST NILE VIRUS IGM Negative (Negative)
== END 2017-08-25 14:34 | disposition short-term general hospital (02) | DRG 91 ==
LOC: EDUNIT# → F2W 08-24 01:33 → OBSVTOIN 08-24 01:39
PROVIDERS: ADMIT Family Medicine; ATTEND Internal Medicine
DX: G21.0 Malignant neuroleptic syndrome (principal); I40.9 Acute myocarditis, unspecified; R65.10 Systemic inflammatory response syndrome (SIRS) of non-infectious origin without acute organ dysfunction; E87.2 Acidosis; T43.595A Adverse effect of other antipsychotics and neuroleptics, initial encounter; D64.9 Anemia, unspecified; E86.9 Volume depletion, unspecified; I45.19 Other right bundle-branch block; F17.210 Nicotine dependence, cigarettes, uncomplicated; F31.9 Bipolar disorder, unspecified; Z79.2 Long term (current) use of antibiotics; Z87.01 Personal history of pneumonia (recurrent)
CPT/HCPCS: 80305; 84484-PO; 86638-90; 97161-GP; J1650; J1885; J2543; Q9967